=== PATIENT | male | born 1965 | race Caucasian/White ===

== ENCOUNTER 2019-05-23 10:15 | Day surgery (SDC) | payer BC ==
[2019-05-23] MEDS ORDERED: ALLO100T PO (15:57)
[2019-05-23] MEDS ORDERED: CLOP75TA35 PO (16:05)
[2019-05-23] MEDS ORDERED: TRIA1TAB5 PO (16:05)
[2019-05-23] MEDS ORDERED: GABA-532 PO (16:05)
[2019-05-23] MEDS ORDERED: ATOR40TA PO (16:05)
[2019-05-23] MEDS ORDERED: CARV6.253 PO (16:05)
[2019-05-23] MEDS ORDERED: BENA40TA8 PO (16:05)
[2019-05-23] MEDS ORDERED: ASPI81TA52 PO (16:05)
--- NOTE | 2019-05-23 16:05 | NUR ---
1030 Patient ambulated safely into [facility]. Patient admitted to outpatient wound care clinic for initial visit with physician. Dressing removed, wound cleansed. Patient assessed for conditions, medications and medical history. Patient showed no s/s of distress at time of assessment. 1145 at bedside accompanied by RN. Wounds assessed, time out performed and debridement done today as detailed in the physician progress/procedure note. Plan of care discussed with patient. Dressings placed per MD orders. Foot xray done as ordered. ELIAS and arterial ultrasound ordered for next weeks appointment. Patient instructed on the signs and symptoms of infection and to call the Wound Center if any occur or to go to the ED if we are closed: Increased pain in wound Increase in drainage from the wound Redness in the skin surrounding the wound Bleeding from the wound Temperature of 101 or greater Patient instructed that the weight of their body puts a large amount of pressure on their wounds. This pressure keeps the new tissue from growing and inhibits new blood vessels from forming. Explained that, if they continue to bear weight on a body part that has a wound, the time it takes to heal the wound increases, the wound may get worse or the wound may not heal at all. Patient verbalized understanding of all discharge instructions and plan of care. Patient ambulated independently out to [facility] and is in stable condition with no sign or symptom of distress at time of discharge.
== END 2019-05-23 12:39 | disposition home or self-care (01) ==
LOC: WOUND CARE 10:15
PROVIDERS: ATTEND Surgery
DX: E11.621 Type 2 diabetes mellitus with foot ulcer (principal); L97.522 Non-pressure chronic ulcer of other part of left foot with fat layer exposed; I12.9 Hypertensive chronic kidney disease with stage 1 through stage 4 chronic kidney disease, or unspecified chronic kidney disease; E11.22 Type 2 diabetes mellitus with diabetic chronic kidney disease; N18.3 Chronic kidney disease, stage 3 (moderate); E11.40 Type 2 diabetes mellitus with diabetic neuropathy, unspecified; G60.9 Hereditary and idiopathic neuropathy, unspecified; I25.10 Atherosclerotic heart disease of native coronary artery without angina pectoris; L84 Corns and callosities; M10.9 Gout, unspecified; I25.2 Old myocardial infarction; E78.5 Hyperlipidemia, unspecified; Z79.01 Long term (current) use of anticoagulants; Z79.02 Long term (current) use of antithrombotics/antiplatelets; Z79.82 Long term (current) use of aspirin; Z79.899 Other long term (current) drug therapy; Z95.5 Presence of coronary angioplasty implant and graft
CPT/HCPCS: 11042; 73620; 87070; 87075; 87077; 87102; 87176; 87186; A6209; G0463; L3260; A4663; A6446

== ENCOUNTER 2019-05-26 16:03 | Inpatient (IN) | payer BC ==
[~2019-05-26] VITALS: Ht 185.4 cm; Wt 93.0 kg
[~2019-05-26 16:03] MED LIST: ALLO100T PO; ASPI81TA52 PO; ATOR40TA PO; BENA40TA8 PO; CARV6.253 PO; CLOP75TA35 PO; GABA-532 PO; TRIA1TAB5 PO
[2019-05-26 17:08] LABS: BASOPHILS # (AUTO) 0.1 X10'3 (0-0.2); BASOPHILS % (AUTO) 0.5 % (0-1); EOSINOPHILS % (AUTO) 0.2 % (0-6); HEMATOCRIT 40.3 % (42.0-52.0); HEMOGLOBIN 13.6 g/dl (14.0-17.9); LYMPHOCYTES # (AUTO) 1.7 X10'3 (1.1-4.8); LYMPHOCYTES % (AUTO) 10.2 % (21-51); MEAN CORPUSCULAR HEMOGLOBIN 28.9 PG (27.0-31.0); MEAN CORPUSCULAR HGB CONC 33.7 g/dL (33.0-36.5); MEAN CORPUSCULAR VOLUME 85.8 FL (78-98); MEAN PLATELET VOLUME 8.2 FL (7.4-10.4); MONOCYTES # (AUTO) 1.1 X10'3 (0-0.9); MONOCYTES % (AUTO) 6.7 % (2-12); NEUTROPHILS # (AUTO) 13.9 X10'3 (1.8-7.7); NEUTROPHILS % (AUTO) 82.4 % (42-75); PLATELET COUNT 243 X10'3 (140-440); RED CELL DISTRIBUTION WIDTH 13.9 % (11.5-14.5); WHITE BLOOD COUNT 16.8 X10'3 (4.5-11.0)
[2019-05-26 17:23] LABS: ALANINE AMINOTRANSFERASE 27 U/L (12-78); ALBUMIN 3.5 G/DL (3.4-5.0); ALBUMIN/GLOBULIN RATIO 0.9 (1.1-1.5); ALKALINE PHOSPHATASE 96 IU/L (46-116); ANION GAP 9 (8-16); ASPARTATE AMINO TRANSFERASE 18 U/L (10-37); BILIRUBIN,TOTAL 0.9 MG/DL (0.1-1.0); BLOOD UREA NITROGEN 24 MG/DL (7-18); BUN/CREATININE RATIO 15.5 (5.4-32.0); CALCIUM 8.9 MG/DL (8.5-10.1); CHLORIDE 102 MMOL/L (99-107); CREATININE 1.55 MG/DL (0.60-1.10); GLUCOSE 121 MG/DL (70-104); POTASSIUM 3.7 MMOL/L (3.5-5.1); SODIUM 140 MMOL/L (135-145); TOTAL CARBON DIOXIDE 29.3 MMOL/L (24-32); TOTAL PROTEIN 7.2 G/DL (6.4-8.2); eGFR 47 ML/MIN
[2019-05-26] MEDS ORDERED: normal saline 1000ML IV soln IVB ONE (17:30)
[2019-05-26] MEDS ORDERED: levoFLOXACIN-Levaquin 500mg/D5 100 ML IV STA (17:31)
[2019-05-26] MEDS ORDERED: iohexol 300mg/ml 100ml inj. ONE (17:43)
--- NOTE | 2019-05-26 17:58 | NUR ---
CLEANSED LEFT FOOT WOUND WITH N/S, COVERED WITH GAUZE, KERLIX AND MELISSA. NOTED FOUL ODOR, REDNESS ON BOTTOM AND TOP OF FOOT WARMTH AND SWELLING.
--- NOTE | 2019-05-26 21:00 | NUR ---
PROVIDED PATIENT WITH SAEED, APPLE SAUCE AND APPLE JUICE AND WATER
[2019-05-26 22:15] VITALS: BP 108/65
--- NOTE | 2019-05-26 22:15 | NUR ---
Patient in room ORTHO 4016. I have received "report" from TRIPP Valero in ED and had the opportunity to ask questions and assume patient care. Patient ambulated from gurney to bed without difficulty. 20G in right AC with 20 mL/hr NS TKO. Patient is A&O x4 and is very pleasant individual. Will continue to monitor closely.
[2019-05-26] MEDS ORDERED: magnesium 2GM in 50ml NS 50 ML IV PRN (22:55)
[2019-05-26] MEDS ORDERED: magnesium Cl slow-release 64mg tablet PO PRN (22:55)
[2019-05-26] MEDS ORDERED: ondansetron/PF 4mg/2ml inj IV PRN (22:55)
[2019-05-26] MEDS ORDERED: acetaminophen 325mg tablet PO PRN (22:55)
[2019-05-26] MEDS ORDERED: potassium Cl 20 mEq SR tablet PO PRN (22:55)
[2019-05-26] MEDS ORDERED: magnesium 4gm in 100ml NS 100 ML IV PRN (22:55)
[2019-05-26] MEDS ORDERED: potassium CL 10mEq/100ml bag 100 ML IV PRN ×2 (22:55)
[2019-05-26] MEDS ORDERED: morphine 2 MG/ML inj. syringe IV PRN (22:55)
[2019-05-26] MEDS ORDERED: HYDROcodone/acetaminophen 5mg/325mg tablet PO PRN (22:55)
[2019-05-26] MEDS: normal saline 1000ml 1,000 ML IV SCH (23:32)
[2019-05-27 05:16] LABS: BASOPHILS % (AUTO) 0.2 % (0-1); EOSINOPHILS # (AUTO) 0.1 X10'3 (0-0.9); EOSINOPHILS % (AUTO) 0.5 % (0-6); HEMATOCRIT 42.8 % (42.0-52.0); HEMOGLOBIN 14.3 g/dl (14.0-17.9); LYMPHOCYTES # (AUTO) 2.2 X10'3 (1.1-4.8); LYMPHOCYTES % (AUTO) 16.5 % (21-51); MEAN CORPUSCULAR HEMOGLOBIN 29.3 PG (27.0-31.0); MEAN CORPUSCULAR HGB CONC 33.4 g/dL (33.0-36.5); MEAN CORPUSCULAR VOLUME 87.8 FL (78-98); MEAN PLATELET VOLUME 8.3 FL (7.4-10.4); MONOCYTES % (AUTO) 7.5 % (2-12); NEUTROPHILS # (AUTO) 10.1 X10'3 (1.8-7.7); NEUTROPHILS % (AUTO) 75.3 % (42-75); PLATELET COUNT 239 X10'3 (140-440); RED BLOOD COUNT 4.87 X10'6 (4.70-6.10); RED CELL DISTRIBUTION WIDTH 13.9 % (11.5-14.5); WHITE BLOOD COUNT 13.4 X10'3 (4.5-11.0)
[2019-05-27 05:31] LABS: ALBUMIN 3.5 G/DL (3.4-5.0); ANION GAP 12 (8-16); BLOOD UREA NITROGEN 17 MG/DL (7-18); BUN/CREATININE RATIO 13.1 (5.4-32.0); CALCIUM 9.3 MG/DL (8.5-10.1); CHLORIDE 104 MMOL/L (99-107); GLUCOSE 99 MG/DL (70-104); MAGNESIUM 1.8 MG/DL (1.5-2.4); POTASSIUM 3.4 MMOL/L (3.5-5.1); SODIUM 143 MMOL/L (135-145); TOTAL CARBON DIOXIDE 27.4 MMOL/L (24-32); eGFR 57 ML/MIN
--- NOTE | 2019-05-27 06:20 | NUR ---
Problems reprioritized. Patient report given, questions answered & plan of care reviewed with TRIPP Stiles.
--- NOTE | 2019-05-27 06:20 | NUR ---
Patient in room ORTHO 4016. I have received report from Odalys and had the opportunity to ask questions and assume patient care.
[2019-05-27 06:30] VITALS: BP 103/59
[2019-05-27] MEDS: potassium Cl 20 mEq SR tablet PO PRN ×2 (07:08→16:41)
[2019-05-27] MEDS: piperacillin/tazo 3.375gm/50ml 50 ML IV SCH ×3 (07:08→23:54)
[2019-05-27] MEDS: atorvastatin 20mg tablet PO SCH (07:09)
[2019-05-27] MEDS: carvedilol 6.25mg tablet PO SCH ×2 (07:09→20:00)
[2019-05-27] MEDS: docusate sod 100mg capsule PO SCH ×2 (07:09→20:00)
[2019-05-27] MEDS: lisinopril 20mg tablet PO SCH (07:11)
[2019-05-27] MEDS: gabapentin 300mg capsule PO SCH ×2 (07:11→20:06)
[2019-05-27] MEDS: clopidogrel 75mg tablet PO SCH (07:11)
[2019-05-27] MEDS: allopurinol 300 MG tablet PO SCH (07:12)
[2019-05-27] MEDS: aspirin 81mg tablet.DR PO SCH (07:12)
[2019-05-27] MEDS: K and/or MAG REPLACEMENT MC SCH (07:13)
[2019-05-27 10:00] VITALS: BP 99/59
[2019-05-27 18:00] VITALS: BP 92/53
--- NOTE | 2019-05-27 18:16 | NUR ---
Problems reprioritized. Patient report given, questions answered & plan of care reviewed with THUY.
[2019-05-27 20:01] VITALS: BP 83/52
[2019-05-27] MEDS: lactobacillus rhamnosus 10,000 MMU CELLS/CAPSULE PO SCH (20:06)
[2019-05-27] MEDS: famotidine 20mg tablet PO SCH (20:06)
[2019-05-27 22:00] VITALS: BP 100/57
[2019-05-28 06:00] VITALS: BP 104/67
--- NOTE | 2019-05-28 06:29 | NUR ---
Report given to Bacilio ALMAGUER.
--- NOTE | 2019-05-28 06:41 | NUR ---
Patient in room ORTHO 4016. I have received report from Jamila Humphrey RN and had the opportunity to ask questions and assume patient care.
[2019-05-28 07:07] LABS: BASOPHILS # (AUTO) 0.1 X10'3 (0-0.2); BASOPHILS % (AUTO) 0.7 % (0-1); EOSINOPHILS # (AUTO) 0.1 X10'3 (0-0.9); HEMATOCRIT 38.1 % (42.0-52.0); LYMPHOCYTES # (AUTO) 1.2 X10'3 (1.1-4.8); LYMPHOCYTES % (AUTO) 13.3 % (21-51); MEAN CORPUSCULAR HEMOGLOBIN 29.6 PG (27.0-31.0); MEAN CORPUSCULAR HGB CONC 34.2 g/dL (33.0-36.5); MEAN CORPUSCULAR VOLUME 86.5 FL (78-98); MEAN PLATELET VOLUME 8.1 FL (7.4-10.4); MONOCYTES # (AUTO) 0.5 X10'3 (0-0.9); NEUTROPHILS # (AUTO) 6.9 X10'3 (1.8-7.7); PLATELET COUNT 245 X10'3 (140-440); RED BLOOD COUNT 4.41 X10'6 (4.70-6.10); RED CELL DISTRIBUTION WIDTH 14.2 % (11.5-14.5); WHITE BLOOD COUNT 8.8 X10'3 (4.5-11.0)
[2019-05-28 07:16] LABS: ANION GAP 9 (8-16); BLOOD UREA NITROGEN 21 MG/DL (7-18); BUN/CREATININE RATIO 13.2 (5.4-32.0); CALCIUM 8.9 MG/DL (8.5-10.1); CHLORIDE 105 MMOL/L (99-107); CREATININE 1.59 MG/DL (0.60-1.10); GLUCOSE 128 MG/DL (70-104); MAGNESIUM 1.7 MG/DL (1.5-2.4); SODIUM 144 MMOL/L (135-145); TOTAL CARBON DIOXIDE 30.3 MMOL/L (24-32); eGFR 45 ML/MIN
[2019-05-28 07:18] LABS: POTASSIUM 3.5 MMOL/L (3.5-5.1)
[2019-05-28] MEDS: K and/or MAG REPLACEMENT MC SCH (07:36)
[2019-05-28] MEDS: docusate sod 100mg capsule PO SCH ×2 (07:41→20:00)
[2019-05-28] MEDS: piperacillin/tazo 3.375gm/50ml 50 ML IV SCH ×3 (07:41→23:49)
[2019-05-28] MEDS: lactobacillus rhamnosus 10,000 MMU CELLS/CAPSULE PO SCH ×2 (07:42→20:07)
[2019-05-28] MEDS: aspirin 81mg tablet.DR PO SCH (07:42)
[2019-05-28] MEDS: clopidogrel 75mg tablet PO SCH (07:43)
[2019-05-28] MEDS: gabapentin 300mg capsule PO SCH ×2 (07:43→20:07)
[2019-05-28] MEDS: atorvastatin 20mg tablet PO SCH (07:43)
[2019-05-28] MEDS: allopurinol 300 MG tablet PO SCH (07:44)
[2019-05-28] MEDS: lisinopril 20mg tablet PO SCH (07:44)
[2019-05-28] MEDS: carvedilol 6.25mg tablet PO SCH ×2 (07:45→20:00)
[2019-05-28 10:00] VITALS: BP 104/64
[2019-05-28 14:00] VITALS: BP 98/62
--- NOTE | 2019-05-28 14:27 | NUR ---
WOUND INFECTION EDUCATION PROVIDED BY WOUND CARE 1. Patient instructed to call their primary doctor, or go the ED immediately if any of the following symptoms occur: * Increased pain in wound * Increase in drainage from the wound * Redness in the skin surrounding the wound * Warmth in the skin surrounding the wound * Bleeding from the wound * Temperature of 101 or greater 2. If any of these occur while in the hospital tell a nurse immediately. Addendum: 05/28/19 at 1428 by Zach Godfrey RN Amended: Links added.
[2019-05-28 18:00] VITALS: BP 99/62
--- NOTE | 2019-05-28 18:05 | NUR ---
Received report from Bacilio ALMAGUER, assumed care of patient.
--- NOTE | 2019-05-28 18:07 | NUR ---
Problems reprioritized. Patient report given, questions answered & plan of care reviewed with Jamila Humphrey RN.
[2019-05-28 20:02] VITALS: BP 102/66
[2019-05-28] MEDS: famotidine 20mg tablet PO SCH (20:07)
[2019-05-28 22:00] VITALS: BP 114/57
[2019-05-28] MEDS: normal saline 1000ml 1,000 ML IV SCH (23:49)
[2019-05-29 06:00] VITALS: BP 111/68
[2019-05-29 06:08] LABS: ALBUMIN 3.1 G/DL (3.4-5.0); ANION GAP 8 (8-16); BLOOD UREA NITROGEN 19 MG/DL (7-18); BUN/CREATININE RATIO 12.4 (5.4-32.0); CALCIUM 9.2 MG/DL (8.5-10.1); CHLORIDE 107 MMOL/L (99-107); CREATININE 1.53 MG/DL (0.60-1.10); GLUCOSE 108 MG/DL (70-104); MAGNESIUM 1.8 MG/DL (1.5-2.4); POTASSIUM 3.8 MMOL/L (3.5-5.1); SODIUM 146 MMOL/L (135-145); TOTAL CARBON DIOXIDE 30.9 MMOL/L (24-32); eGFR 47 ML/MIN
--- NOTE | 2019-05-29 06:10 | NUR ---
Patient in room ORTHO 4016. I have received report from Jamila Becker and had the opportunity to ask questions and assume patient care.
[2019-05-29 06:11] LABS: BASOPHILS % (AUTO) 0.4 % (0-1); EOSINOPHILS # (AUTO) 0.1 X10'3 (0-0.9); EOSINOPHILS % (AUTO) 1.2 % (0-6); HEMATOCRIT 40.4 % (42.0-52.0); HEMOGLOBIN 13.7 g/dl (14.0-17.9); LYMPHOCYTES # (AUTO) 1.5 X10'3 (1.1-4.8); LYMPHOCYTES % (AUTO) 18.7 % (21-51); MEAN CORPUSCULAR HEMOGLOBIN 29.2 PG (27.0-31.0); MEAN CORPUSCULAR HGB CONC 33.8 g/dL (33.0-36.5); MEAN CORPUSCULAR VOLUME 86.4 FL (78-98); MEAN PLATELET VOLUME 7.8 FL (7.4-10.4); MONOCYTES # (AUTO) 0.5 X10'3 (0-0.9); MONOCYTES % (AUTO) 5.9 % (2-12); NEUTROPHILS # (AUTO) 5.8 X10'3 (1.8-7.7); NEUTROPHILS % (AUTO) 73.8 % (42-75); PLATELET COUNT 247 X10'3 (140-440); RED BLOOD COUNT 4.68 X10'6 (4.70-6.10); RED CELL DISTRIBUTION WIDTH 13.7 % (11.5-14.5); WHITE BLOOD COUNT 7.8 X10'3 (4.5-11.0)
--- NOTE | 2019-05-29 06:11 | NUR ---
Report given to Ashley ALMAGUER.
[2019-05-29] MEDS: allopurinol 300 MG tablet PO SCH (08:00)
[2019-05-29] MEDS: K and/or MAG REPLACEMENT MC SCH (08:00)
[2019-05-29] MEDS: lisinopril 20mg tablet PO SCH (08:00)
[2019-05-29] MEDS: docusate sod 100mg capsule PO SCH (08:00)
[2019-05-29] MEDS: piperacillin/tazo 3.375gm/50ml 50 ML IV SCH (08:43)
[2019-05-29] MEDS: aspirin 81mg tablet.DR PO SCH (08:48)
[2019-05-29] MEDS: clopidogrel 75mg tablet PO SCH (08:48)
[2019-05-29] MEDS: gabapentin 300mg capsule PO SCH (08:48)
[2019-05-29] MEDS: atorvastatin 20mg tablet PO SCH (08:48)
[2019-05-29] MEDS: lactobacillus rhamnosus 10,000 MMU CELLS/CAPSULE PO SCH (08:48)
[2019-05-29] MEDS: carvedilol 6.25mg tablet PO SCH (08:48)
[2019-05-29 10:32] VITALS: BP 111/67
[2019-05-29] MEDS ORDERED: SULF1TAB49 PO (10:49)
[2019-05-29] MEDS ORDERED: CEPH250T PO (10:49)
--- NOTE | 2019-05-29 12:44 | NUR ---
Reviewed discharge instructions with pt. Pt verbalized understanding. Reviewed wound care discharge instruction with pt and spouse. Pt is alert and oriented, no c/o pain or discomfort at this time. Pt was wheeled downstairs to be driven home by his spouse. Pt will call wound care clinic to make a follow up appt in 3 days.
== END 2019-05-29 13:00 | disposition home or self-care (01) | DRG 603 ==
LOC: ER 16:03 → ORTHO 4S 23:34
PROVIDERS: ADMIT Internal Medicine; ATTEND Internal Medicine
DX: L03.116 Cellulitis of left lower limb (principal); N17.9 Acute kidney failure, unspecified; L02.612 Cutaneous abscess of left foot; E11.22 Type 2 diabetes mellitus with diabetic chronic kidney disease; E11.40 Type 2 diabetes mellitus with diabetic neuropathy, unspecified; E11.621 Type 2 diabetes mellitus with foot ulcer; E78.5 Hyperlipidemia, unspecified; I12.9 Hypertensive chronic kidney disease with stage 1 through stage 4 chronic kidney disease, or unspecified chronic kidney disease; I25.10 Atherosclerotic heart disease of native coronary artery without angina pectoris; L84 Corns and callosities; L97.521 Non-pressure chronic ulcer of other part of left foot limited to breakdown of skin; E87.6 Hypokalemia; M62.542 Muscle wasting and atrophy, not elsewhere classified, left hand; N18.3 Chronic kidney disease, stage 3 (moderate); M10.9 Gout, unspecified; Z79.82 Long term (current) use of aspirin; Z79.899 Other long term (current) drug therapy; I25.2 Old myocardial infarction; Z79.02 Long term (current) use of antithrombotics/antiplatelets; Z79.01 Long term (current) use of anticoagulants; Z95.5 Presence of coronary angioplasty implant and graft
CPT/HCPCS: 36415; 73701; 73718; 80048; 80053; 83605; 83735; 84145; 85025; 85651; 86140; 87040; 87081; 96365; 99285; G0378; J1956; J2543; J7030; Q9967

== ENCOUNTER 2019-06-03 08:41 | Day surgery (SDC) | payer BC ==
[~2019-06-03 08:41] MED LIST changes: +CEPH250T PO; +SULF1TAB49 PO
[2019-06-03] MEDS ORDERED: LIDOcaine/PRILOcaine 5gm cream TP ONE (09:53)
== END 2019-06-03 10:40 | disposition home or self-care (01) ==
LOC: WOUND CARE 08:41
PROVIDERS: ATTEND Surgery
DX: E11.621 Type 2 diabetes mellitus with foot ulcer (principal); L89.893 Pressure ulcer of other site, stage 3; L97.522 Non-pressure chronic ulcer of other part of left foot with fat layer exposed; I12.9 Hypertensive chronic kidney disease with stage 1 through stage 4 chronic kidney disease, or unspecified chronic kidney disease; E11.22 Type 2 diabetes mellitus with diabetic chronic kidney disease; N18.3 Chronic kidney disease, stage 3 (moderate); E11.40 Type 2 diabetes mellitus with diabetic neuropathy, unspecified; G60.9 Hereditary and idiopathic neuropathy, unspecified; I25.10 Atherosclerotic heart disease of native coronary artery without angina pectoris; L84 Corns and callosities; M10.9 Gout, unspecified; I25.2 Old myocardial infarction; E78.5 Hyperlipidemia, unspecified; Z79.01 Long term (current) use of anticoagulants; Z79.02 Long term (current) use of antithrombotics/antiplatelets; Z79.82 Long term (current) use of aspirin; Z79.899 Other long term (current) drug therapy; Z95.5 Presence of coronary angioplasty implant and graft
CPT/HCPCS: 11042; A6266; A4663; A6446

== ENCOUNTER 2019-06-06 08:30 | Day surgery (SDC) | payer BC ==
[2019-06-06] MEDS ORDERED: LIDOcaine/PRILOcaine 5gm cream TP ONE (09:22)
== END 2019-06-06 11:02 | disposition home or self-care (01) ==
LOC: WOUND CARE 08:30
PROVIDERS: ATTEND Surgery
DX: E11.621 Type 2 diabetes mellitus with foot ulcer (principal); L89.893 Pressure ulcer of other site, stage 3; L97.522 Non-pressure chronic ulcer of other part of left foot with fat layer exposed; I12.9 Hypertensive chronic kidney disease with stage 1 through stage 4 chronic kidney disease, or unspecified chronic kidney disease; E11.22 Type 2 diabetes mellitus with diabetic chronic kidney disease; N18.3 Chronic kidney disease, stage 3 (moderate); E11.40 Type 2 diabetes mellitus with diabetic neuropathy, unspecified; G60.9 Hereditary and idiopathic neuropathy, unspecified; I25.10 Atherosclerotic heart disease of native coronary artery without angina pectoris; L84 Corns and callosities; M10.9 Gout, unspecified; I25.2 Old myocardial infarction; E78.5 Hyperlipidemia, unspecified; Z79.01 Long term (current) use of anticoagulants; Z79.02 Long term (current) use of antithrombotics/antiplatelets; Z79.82 Long term (current) use of aspirin; Z79.899 Other long term (current) drug therapy; Z95.5 Presence of coronary angioplasty implant and graft
CPT/HCPCS: 29445; A4663; A6021; A6154; Q4038

== ENCOUNTER 2019-06-09 15:27 | Emergency (ER) | payer BC ==
[~2019-06-09] VITALS: Ht 185.4 cm; Wt 102.0 kg
[2019-06-09 16:23] LABS: BASOPHILS # (AUTO) 0.1 X10'3 (0-0.2); BASOPHILS % (AUTO) 0.5 % (0-1); EOSINOPHILS # (AUTO) 0.1 X10'3 (0-0.9); EOSINOPHILS % (AUTO) 0.9 % (0-6); HEMOGLOBIN 14.5 g/dl (14.0-17.9); LYMPHOCYTES # (AUTO) 1.9 X10'3 (1.1-4.8); LYMPHOCYTES % (AUTO) 17.7 % (21-51); MEAN CORPUSCULAR HEMOGLOBIN 28.8 PG (27.0-31.0); MEAN CORPUSCULAR HGB CONC 33.7 g/dL (33.0-36.5); MEAN CORPUSCULAR VOLUME 85.5 FL (78-98); MEAN PLATELET VOLUME 7.6 FL (7.4-10.4); MONOCYTES # (AUTO) 0.5 X10'3 (0-0.9); MONOCYTES % (AUTO) 4.4 % (2-12); NEUTROPHILS # (AUTO) 8.2 X10'3 (1.8-7.7); NEUTROPHILS % (AUTO) 76.5 % (42-75); PLATELET COUNT 316 X10'3 (140-440); RED BLOOD COUNT 5.03 X10'6 (4.70-6.10); WHITE BLOOD COUNT 10.7 X10'3 (4.5-11.0)
[2019-06-09 16:40] LABS: ALANINE AMINOTRANSFERASE 32 U/L (12-78); ALBUMIN 3.7 G/DL (3.4-5.0); ALBUMIN/GLOBULIN RATIO 1.1 (1.1-1.5); ALKALINE PHOSPHATASE 103 IU/L (46-116); ANION GAP 9 (8-16); ASPARTATE AMINO TRANSFERASE 18 U/L (10-37); BILIRUBIN,TOTAL 0.5 MG/DL (0.1-1.0); BLOOD UREA NITROGEN 20 MG/DL (7-18); BUN/CREATININE RATIO 13.2 (5.4-32.0); CALCIUM 8.9 MG/DL (8.5-10.1); CHLORIDE 105 MMOL/L (99-107); CREATININE 1.52 MG/DL (0.60-1.10); GLUCOSE 107 MG/DL (70-104); PARTIAL THROMBOPLASTIN TIME 33 SECONDS (22-32); POTASSIUM 3.7 MMOL/L (3.5-5.1); SODIUM 141 MMOL/L (135-145); TOTAL CARBON DIOXIDE 26.6 MMOL/L (24-32); TOTAL PROTEIN 7.2 G/DL (6.4-8.2); eGFR 48 ML/MIN
[2019-06-09 16:56] VITALS: BP 115/70
== END 2019-06-09 16:59 | disposition home or self-care (01) ==
LOC: ER 15:27
DX: R07.89 Other chest pain (principal); G62.9 Polyneuropathy, unspecified; Z79.82 Long term (current) use of aspirin; Z79.899 Other long term (current) drug therapy
CPT/HCPCS: 36415; 71045; 80053; 84484; 85025; 85610; 85730; 93005; 99284

== ENCOUNTER 2019-06-10 08:30 | Day surgery (SDC) | payer BC ==
[2019-06-10] MEDS ORDERED: LIDOcaine 2% 5ml jelly ONE (09:03)
== END 2019-06-10 11:05 | disposition home or self-care (01) ==
LOC: WOUND CARE 08:30
PROVIDERS: ATTEND Surgery
DX: E11.621 Type 2 diabetes mellitus with foot ulcer (principal); L89.893 Pressure ulcer of other site, stage 3; L97.522 Non-pressure chronic ulcer of other part of left foot with fat layer exposed; I12.9 Hypertensive chronic kidney disease with stage 1 through stage 4 chronic kidney disease, or unspecified chronic kidney disease; E11.22 Type 2 diabetes mellitus with diabetic chronic kidney disease; N18.3 Chronic kidney disease, stage 3 (moderate); E11.40 Type 2 diabetes mellitus with diabetic neuropathy, unspecified; G60.9 Hereditary and idiopathic neuropathy, unspecified; I25.10 Atherosclerotic heart disease of native coronary artery without angina pectoris; L84 Corns and callosities; M10.9 Gout, unspecified; I25.2 Old myocardial infarction; E78.5 Hyperlipidemia, unspecified; Z79.01 Long term (current) use of anticoagulants; Z79.02 Long term (current) use of antithrombotics/antiplatelets; Z79.82 Long term (current) use of aspirin; Z79.899 Other long term (current) drug therapy; Z95.5 Presence of coronary angioplasty implant and graft
CPT/HCPCS: 29445; A4663; A6021; A6154; Q4038

== ENCOUNTER 2019-06-17 08:25 | Day surgery (SDC) | payer BC ==
[2019-06-17] MEDS ORDERED: LIDOcaine 2% 5ml jelly ONE (10:06)
== END 2019-06-17 12:00 | disposition home or self-care (01) ==
LOC: WOUND CARE 08:25
PROVIDERS: ATTEND Surgery
DX: E11.621 Type 2 diabetes mellitus with foot ulcer (principal); L89.893 Pressure ulcer of other site, stage 3; L97.522 Non-pressure chronic ulcer of other part of left foot with fat layer exposed; I12.9 Hypertensive chronic kidney disease with stage 1 through stage 4 chronic kidney disease, or unspecified chronic kidney disease; E11.22 Type 2 diabetes mellitus with diabetic chronic kidney disease; N18.3 Chronic kidney disease, stage 3 (moderate); E11.40 Type 2 diabetes mellitus with diabetic neuropathy, unspecified; G60.9 Hereditary and idiopathic neuropathy, unspecified; I25.10 Atherosclerotic heart disease of native coronary artery without angina pectoris; L84 Corns and callosities; M10.9 Gout, unspecified; I25.2 Old myocardial infarction; E78.5 Hyperlipidemia, unspecified; Z79.01 Long term (current) use of anticoagulants; Z79.02 Long term (current) use of antithrombotics/antiplatelets; Z79.82 Long term (current) use of aspirin; Z79.899 Other long term (current) drug therapy; Z95.5 Presence of coronary angioplasty implant and graft
CPT/HCPCS: 29445; A4663; A6021; A6154; Q4038

== ENCOUNTER 2019-06-25 08:20 | Day surgery (SDC) | payer BC ==
[2019-06-25] MEDS ORDERED: LIDOcaine 2% 5ml jelly ONE (09:21)
== END 2019-06-25 11:25 | disposition home or self-care (01) ==
LOC: WOUND CARE 08:20
PROVIDERS: ATTEND Surgery
DX: E11.621 Type 2 diabetes mellitus with foot ulcer (principal); L89.893 Pressure ulcer of other site, stage 3; L97.526 Non-pressure chronic ulcer of other part of left foot with bone involvement without evidence of necrosis; I12.9 Hypertensive chronic kidney disease with stage 1 through stage 4 chronic kidney disease, or unspecified chronic kidney disease; E11.22 Type 2 diabetes mellitus with diabetic chronic kidney disease; N18.3 Chronic kidney disease, stage 3 (moderate); E11.40 Type 2 diabetes mellitus with diabetic neuropathy, unspecified; G60.9 Hereditary and idiopathic neuropathy, unspecified; I25.10 Atherosclerotic heart disease of native coronary artery without angina pectoris; L84 Corns and callosities; M10.9 Gout, unspecified; I25.2 Old myocardial infarction; E78.5 Hyperlipidemia, unspecified; Z79.01 Long term (current) use of anticoagulants; Z79.02 Long term (current) use of antithrombotics/antiplatelets; Z79.82 Long term (current) use of aspirin; Z79.899 Other long term (current) drug therapy; Z95.5 Presence of coronary angioplasty implant and graft
CPT/HCPCS: 29445; A4663; A6021; A6154; Q4038

== ENCOUNTER 2019-07-01 08:20 | Day surgery (SDC) | payer BC ==
[2019-07-01] MEDS ORDERED: LIDOcaine 2% 5ml jelly ONE (08:55)
== END 2019-07-01 10:44 | disposition home or self-care (01) ==
LOC: WOUND CARE 08:20
PROVIDERS: ATTEND Surgery
DX: E11.621 Type 2 diabetes mellitus with foot ulcer (principal); L89.893 Pressure ulcer of other site, stage 3; L97.526 Non-pressure chronic ulcer of other part of left foot with bone involvement without evidence of necrosis; I12.9 Hypertensive chronic kidney disease with stage 1 through stage 4 chronic kidney disease, or unspecified chronic kidney disease; E11.22 Type 2 diabetes mellitus with diabetic chronic kidney disease; N18.3 Chronic kidney disease, stage 3 (moderate); E11.40 Type 2 diabetes mellitus with diabetic neuropathy, unspecified; G60.9 Hereditary and idiopathic neuropathy, unspecified; I25.10 Atherosclerotic heart disease of native coronary artery without angina pectoris; L84 Corns and callosities; M10.9 Gout, unspecified; I25.2 Old myocardial infarction; E78.5 Hyperlipidemia, unspecified; Z79.01 Long term (current) use of anticoagulants; Z79.02 Long term (current) use of antithrombotics/antiplatelets; Z79.82 Long term (current) use of aspirin; Z79.899 Other long term (current) drug therapy; Z95.5 Presence of coronary angioplasty implant and graft
CPT/HCPCS: A4663; A6021; A6154

== ENCOUNTER 2019-07-09 08:10 | Day surgery (SDC) | payer BC ==
[~2019-07-09 08:10] MED LIST changes: -SULF1TAB49 PO
[2019-07-09] MEDS ORDERED: LIDOcaine/PRILOcaine 5gm cream TP ONE (09:13)
== END 2019-07-09 11:00 | disposition home or self-care (01) ==
LOC: WOUND CARE 08:10
PROVIDERS: ATTEND Surgery
DX: E11.621 Type 2 diabetes mellitus with foot ulcer (principal); L89.893 Pressure ulcer of other site, stage 3; L97.524 Non-pressure chronic ulcer of other part of left foot with necrosis of bone; I12.9 Hypertensive chronic kidney disease with stage 1 through stage 4 chronic kidney disease, or unspecified chronic kidney disease; E11.22 Type 2 diabetes mellitus with diabetic chronic kidney disease; N18.3 Chronic kidney disease, stage 3 (moderate); E11.40 Type 2 diabetes mellitus with diabetic neuropathy, unspecified; G60.9 Hereditary and idiopathic neuropathy, unspecified; I25.10 Atherosclerotic heart disease of native coronary artery without angina pectoris; L84 Corns and callosities; M10.9 Gout, unspecified; I25.2 Old myocardial infarction; E78.5 Hyperlipidemia, unspecified; Z79.01 Long term (current) use of anticoagulants; Z79.02 Long term (current) use of antithrombotics/antiplatelets; Z79.82 Long term (current) use of aspirin; Z79.899 Other long term (current) drug therapy; Z95.5 Presence of coronary angioplasty implant and graft
CPT/HCPCS: 11042; A6209; A4663; A6021; A6154

== ENCOUNTER 2019-07-15 08:31 | Day surgery (SDC) | payer BC ==
[2019-07-15] MEDS ORDERED: LIDOcaine/PRILOcaine 5gm cream TP ONE (08:57)
== END 2019-07-15 10:42 | disposition home or self-care (01) ==
LOC: WOUND CARE 08:31
PROVIDERS: ATTEND Surgery
DX: E11.621 Type 2 diabetes mellitus with foot ulcer (principal); L89.893 Pressure ulcer of other site, stage 3; L97.524 Non-pressure chronic ulcer of other part of left foot with necrosis of bone; I12.9 Hypertensive chronic kidney disease with stage 1 through stage 4 chronic kidney disease, or unspecified chronic kidney disease; E11.22 Type 2 diabetes mellitus with diabetic chronic kidney disease; N18.3 Chronic kidney disease, stage 3 (moderate); E11.40 Type 2 diabetes mellitus with diabetic neuropathy, unspecified; G60.9 Hereditary and idiopathic neuropathy, unspecified; I25.10 Atherosclerotic heart disease of native coronary artery without angina pectoris; L84 Corns and callosities; M10.9 Gout, unspecified; I25.2 Old myocardial infarction; E78.5 Hyperlipidemia, unspecified; Z79.01 Long term (current) use of anticoagulants; Z79.02 Long term (current) use of antithrombotics/antiplatelets; Z79.82 Long term (current) use of aspirin; Z79.899 Other long term (current) drug therapy; Z95.5 Presence of coronary angioplasty implant and graft
CPT/HCPCS: 11042; A6209; A4663; A6021; A6154; Q4038

== ENCOUNTER 2019-07-22 08:30 | Outpatient (CLI) | payer BC | END 2019-07-22 09:30 | disposition home or self-care (01) | LOC: WOUND CARE 08:30 → EDSTATUS 08:30 → WOUND CARE 09:30 | PROVIDERS: ATTEND Surgery | DX: E11.621 Type 2 diabetes mellitus with foot ulcer (principal); L89.893 Pressure ulcer of other site, stage 3; L97.524 Non-pressure chronic ulcer of other part of left foot with necrosis of bone; I12.9 Hypertensive chronic kidney disease with stage 1 through stage 4 chronic kidney disease, or unspecified chronic kidney disease; E11.22 Type 2 diabetes mellitus with diabetic chronic kidney disease; N18.3 Chronic kidney disease, stage 3 (moderate); E11.40 Type 2 diabetes mellitus with diabetic neuropathy, unspecified; G60.9 Hereditary and idiopathic neuropathy, unspecified; I25.10 Atherosclerotic heart disease of native coronary artery without angina pectoris; L84 Corns and callosities; M81.0 Age-related osteoporosis without current pathological fracture; I25.2 Old myocardial infarction; E78.5 Hyperlipidemia, unspecified; Z79.01 Long term (current) use of anticoagulants; Z79.02 Long term (current) use of antithrombotics/antiplatelets; Z79.82 Long term (current) use of aspirin; Z79.899 Other long term (current) drug therapy; Z95.5 Presence of coronary angioplasty implant and graft | CPT/HCPCS: 29445; A6209; A6222; A4663; A6021; Q4038 ==

== ENCOUNTER 2019-07-29 08:30 | Day surgery (SDC) | payer BC ==
[2019-07-29] MEDS ORDERED: LIDOcaine/PRILOcaine 5gm cream TP ONE (09:12)
== END 2019-07-29 10:55 | disposition home or self-care (01) ==
LOC: WOUND CARE 08:30
PROVIDERS: ATTEND Surgery
DX: E11.621 Type 2 diabetes mellitus with foot ulcer (principal); L89.893 Pressure ulcer of other site, stage 3; L97.524 Non-pressure chronic ulcer of other part of left foot with necrosis of bone; I12.9 Hypertensive chronic kidney disease with stage 1 through stage 4 chronic kidney disease, or unspecified chronic kidney disease; E11.22 Type 2 diabetes mellitus with diabetic chronic kidney disease; N18.3 Chronic kidney disease, stage 3 (moderate); E11.40 Type 2 diabetes mellitus with diabetic neuropathy, unspecified; G60.9 Hereditary and idiopathic neuropathy, unspecified; I25.10 Atherosclerotic heart disease of native coronary artery without angina pectoris; L84 Corns and callosities; M81.0 Age-related osteoporosis without current pathological fracture; I25.2 Old myocardial infarction; E78.5 Hyperlipidemia, unspecified; Z79.01 Long term (current) use of anticoagulants; Z79.02 Long term (current) use of antithrombotics/antiplatelets; Z79.82 Long term (current) use of aspirin; Z79.899 Other long term (current) drug therapy; Z95.5 Presence of coronary angioplasty implant and graft
CPT/HCPCS: 11042; A6209; A4663; A6021; A6154; Q4038

== ENCOUNTER 2019-08-05 08:20 | Day surgery (SDC) | payer BC ==
[2019-08-05] MEDS ORDERED: LIDOcaine 2% 5ml jelly ONE (09:07)
== END 2019-08-05 10:53 | disposition home or self-care (01) ==
LOC: WOUND CARE 08:20
PROVIDERS: ATTEND Surgery
DX: E11.621 Type 2 diabetes mellitus with foot ulcer (principal); I83.025 Varicose veins of left lower extremity with ulcer other part of foot; L89.893 Pressure ulcer of other site, stage 3; L97.524 Non-pressure chronic ulcer of other part of left foot with necrosis of bone; I12.9 Hypertensive chronic kidney disease with stage 1 through stage 4 chronic kidney disease, or unspecified chronic kidney disease; E11.22 Type 2 diabetes mellitus with diabetic chronic kidney disease; N18.3 Chronic kidney disease, stage 3 (moderate); E11.40 Type 2 diabetes mellitus with diabetic neuropathy, unspecified; G60.9 Hereditary and idiopathic neuropathy, unspecified; I25.10 Atherosclerotic heart disease of native coronary artery without angina pectoris; L84 Corns and callosities; M81.0 Age-related osteoporosis without current pathological fracture; I25.2 Old myocardial infarction; E78.5 Hyperlipidemia, unspecified; Z79.01 Long term (current) use of anticoagulants; Z79.02 Long term (current) use of antithrombotics/antiplatelets; Z79.82 Long term (current) use of aspirin; Z79.899 Other long term (current) drug therapy; Z95.5 Presence of coronary angioplasty implant and graft
CPT/HCPCS: A4663; A6021; Q4038

== ENCOUNTER 2019-08-12 08:20 | Day surgery (SDC) | payer BC ==
[2019-08-12] MEDS ORDERED: LIDOcaine/PRILOcaine 5gm cream TP ONE (09:07)
== END 2019-08-12 10:47 | disposition home or self-care (01) ==
LOC: WOUND CARE 08:20
PROVIDERS: ATTEND Surgery
DX: E11.621 Type 2 diabetes mellitus with foot ulcer (principal); I83.025 Varicose veins of left lower extremity with ulcer other part of foot; L89.893 Pressure ulcer of other site, stage 3; L97.524 Non-pressure chronic ulcer of other part of left foot with necrosis of bone; I12.9 Hypertensive chronic kidney disease with stage 1 through stage 4 chronic kidney disease, or unspecified chronic kidney disease; E11.22 Type 2 diabetes mellitus with diabetic chronic kidney disease; N18.3 Chronic kidney disease, stage 3 (moderate); E11.40 Type 2 diabetes mellitus with diabetic neuropathy, unspecified; G60.9 Hereditary and idiopathic neuropathy, unspecified; I25.10 Atherosclerotic heart disease of native coronary artery without angina pectoris; L84 Corns and callosities; M81.0 Age-related osteoporosis without current pathological fracture; I25.2 Old myocardial infarction; E78.5 Hyperlipidemia, unspecified; Z79.01 Long term (current) use of anticoagulants; Z79.02 Long term (current) use of antithrombotics/antiplatelets; Z79.82 Long term (current) use of aspirin; Z79.899 Other long term (current) drug therapy; Z95.5 Presence of coronary angioplasty implant and graft
CPT/HCPCS: A4663; A6021; A6154; Q4038

== ENCOUNTER 2019-08-19 08:20 | Day surgery (SDC) | payer BC ==
[2019-08-19] MEDS ORDERED: LIDOcaine 2% 5ml jelly ONE (09:25)
== END 2019-08-19 11:10 | disposition home or self-care (01) ==
LOC: WOUND CARE 08:20
PROVIDERS: ATTEND Surgery
DX: E11.621 Type 2 diabetes mellitus with foot ulcer (principal); I83.025 Varicose veins of left lower extremity with ulcer other part of foot; L89.893 Pressure ulcer of other site, stage 3; L97.524 Non-pressure chronic ulcer of other part of left foot with necrosis of bone; I12.9 Hypertensive chronic kidney disease with stage 1 through stage 4 chronic kidney disease, or unspecified chronic kidney disease; E11.22 Type 2 diabetes mellitus with diabetic chronic kidney disease; N18.3 Chronic kidney disease, stage 3 (moderate); E11.40 Type 2 diabetes mellitus with diabetic neuropathy, unspecified; G60.9 Hereditary and idiopathic neuropathy, unspecified; I25.10 Atherosclerotic heart disease of native coronary artery without angina pectoris; L84 Corns and callosities; M81.0 Age-related osteoporosis without current pathological fracture; I25.2 Old myocardial infarction; E78.5 Hyperlipidemia, unspecified; Z79.01 Long term (current) use of anticoagulants; Z79.02 Long term (current) use of antithrombotics/antiplatelets; Z79.82 Long term (current) use of aspirin; Z79.899 Other long term (current) drug therapy; Z95.5 Presence of coronary angioplasty implant and graft
CPT/HCPCS: 11042; A6209; A4663; A6021; Q4038

== ENCOUNTER 2019-08-26 08:37 | Day surgery (SDC) | payer BC ==
[2019-08-26] MEDS ORDERED: LIDOcaine 2% 5ml jelly ONE (08:57)
== END 2019-08-26 10:15 | disposition home or self-care (01) ==
LOC: WOUND CARE 08:37
PROVIDERS: ATTEND Surgery
DX: E11.621 Type 2 diabetes mellitus with foot ulcer (principal); I83.025 Varicose veins of left lower extremity with ulcer other part of foot; L89.893 Pressure ulcer of other site, stage 3; L97.524 Non-pressure chronic ulcer of other part of left foot with necrosis of bone; I12.9 Hypertensive chronic kidney disease with stage 1 through stage 4 chronic kidney disease, or unspecified chronic kidney disease; E11.22 Type 2 diabetes mellitus with diabetic chronic kidney disease; N18.3 Chronic kidney disease, stage 3 (moderate); E11.40 Type 2 diabetes mellitus with diabetic neuropathy, unspecified; G60.9 Hereditary and idiopathic neuropathy, unspecified; I25.10 Atherosclerotic heart disease of native coronary artery without angina pectoris; L84 Corns and callosities; M81.0 Age-related osteoporosis without current pathological fracture; I25.2 Old myocardial infarction; E78.5 Hyperlipidemia, unspecified; Z79.01 Long term (current) use of anticoagulants; Z79.02 Long term (current) use of antithrombotics/antiplatelets; Z79.82 Long term (current) use of aspirin; Z79.899 Other long term (current) drug therapy; Z95.5 Presence of coronary angioplasty implant and graft
CPT/HCPCS: 11042; A6209; A4663; A6021; A6154; A6446

== ENCOUNTER 2019-08-30 10:30 | Day surgery (SDC) | payer BC | END 2019-08-30 11:53 | disposition home or self-care (01) | LOC: WOUND CARE 10:30 | PROVIDERS: ATTEND Surgery | DX: E11.621 Type 2 diabetes mellitus with foot ulcer (principal); I83.025 Varicose veins of left lower extremity with ulcer other part of foot; L89.893 Pressure ulcer of other site, stage 3; L97.524 Non-pressure chronic ulcer of other part of left foot with necrosis of bone; I12.9 Hypertensive chronic kidney disease with stage 1 through stage 4 chronic kidney disease, or unspecified chronic kidney disease; E11.22 Type 2 diabetes mellitus with diabetic chronic kidney disease; N18.3 Chronic kidney disease, stage 3 (moderate); E11.40 Type 2 diabetes mellitus with diabetic neuropathy, unspecified; G60.9 Hereditary and idiopathic neuropathy, unspecified; I25.10 Atherosclerotic heart disease of native coronary artery without angina pectoris; L84 Corns and callosities; M81.0 Age-related osteoporosis without current pathological fracture; M10.9 Gout, unspecified; I25.2 Old myocardial infarction; E78.5 Hyperlipidemia, unspecified; Z79.01 Long term (current) use of anticoagulants; Z79.02 Long term (current) use of antithrombotics/antiplatelets; Z79.82 Long term (current) use of aspirin; Z79.899 Other long term (current) drug therapy; Z95.5 Presence of coronary angioplasty implant and graft | CPT/HCPCS: 29445; A4663; A6021; A6154; Q4038 ==

== ENCOUNTER 2019-09-09 08:20 | Day surgery (SDC) | payer BC ==
[2019-09-09] MEDS ORDERED: LIDOcaine 2% 5ml jelly ONE (09:16)
== END 2019-09-09 10:42 | disposition home or self-care (01) ==
LOC: WOUND CARE 08:20
PROVIDERS: ATTEND Surgery
DX: E11.621 Type 2 diabetes mellitus with foot ulcer (principal); I83.025 Varicose veins of left lower extremity with ulcer other part of foot; L89.893 Pressure ulcer of other site, stage 3; L97.524 Non-pressure chronic ulcer of other part of left foot with necrosis of bone; I12.9 Hypertensive chronic kidney disease with stage 1 through stage 4 chronic kidney disease, or unspecified chronic kidney disease; E11.22 Type 2 diabetes mellitus with diabetic chronic kidney disease; N18.3 Chronic kidney disease, stage 3 (moderate); E11.40 Type 2 diabetes mellitus with diabetic neuropathy, unspecified; G60.9 Hereditary and idiopathic neuropathy, unspecified; I25.10 Atherosclerotic heart disease of native coronary artery without angina pectoris; L84 Corns and callosities; M81.0 Age-related osteoporosis without current pathological fracture; I25.2 Old myocardial infarction; E78.5 Hyperlipidemia, unspecified; Z79.01 Long term (current) use of anticoagulants; Z79.02 Long term (current) use of antithrombotics/antiplatelets; Z79.82 Long term (current) use of aspirin; Z79.899 Other long term (current) drug therapy; Z95.5 Presence of coronary angioplasty implant and graft
CPT/HCPCS: 97597; A6021; A6154; Q4038

== ENCOUNTER 2019-09-16 08:05 | Day surgery (SDC) | payer BC ==
[2019-09-16] MEDS ORDERED: LIDOcaine 2% 5ml jelly ONE (09:16)
== END 2019-09-16 10:51 | disposition home or self-care (01) ==
LOC: WOUND CARE 08:05
PROVIDERS: ATTEND Surgery
DX: E11.621 Type 2 diabetes mellitus with foot ulcer (principal); I83.025 Varicose veins of left lower extremity with ulcer other part of foot; L89.893 Pressure ulcer of other site, stage 3; L97.524 Non-pressure chronic ulcer of other part of left foot with necrosis of bone; I12.9 Hypertensive chronic kidney disease with stage 1 through stage 4 chronic kidney disease, or unspecified chronic kidney disease; E11.22 Type 2 diabetes mellitus with diabetic chronic kidney disease; N18.3 Chronic kidney disease, stage 3 (moderate); E11.40 Type 2 diabetes mellitus with diabetic neuropathy, unspecified; G60.9 Hereditary and idiopathic neuropathy, unspecified; I25.10 Atherosclerotic heart disease of native coronary artery without angina pectoris; L84 Corns and callosities; M81.0 Age-related osteoporosis without current pathological fracture; I25.2 Old myocardial infarction; E78.5 Hyperlipidemia, unspecified; Z79.01 Long term (current) use of anticoagulants; Z79.02 Long term (current) use of antithrombotics/antiplatelets; Z79.82 Long term (current) use of aspirin; Z79.899 Other long term (current) drug therapy; Z95.5 Presence of coronary angioplasty implant and graft
CPT/HCPCS: 97597; A6209; A4663; A6021; A6154; Q4038

== ENCOUNTER 2019-09-23 08:10 | Outpatient (CLI) | payer BC ==
[2019-09-23] MEDS ORDERED: LIDOcaine/PRILOcaine 5gm cream TP ONE (09:10)
[2019-09-23] MEDS ORDERED: Silvasorb gel 45gm tube TP ONE (10:13)
== END 2019-09-23 10:53 | disposition home or self-care (01) ==
LOC: WOUND CARE 08:10 → EDSTATUS 08:30 → WOUND CARE 10:53
PROVIDERS: ATTEND Surgery
DX: E11.621 Type 2 diabetes mellitus with foot ulcer (principal); I83.025 Varicose veins of left lower extremity with ulcer other part of foot; L89.893 Pressure ulcer of other site, stage 3; L97.524 Non-pressure chronic ulcer of other part of left foot with necrosis of bone; I12.9 Hypertensive chronic kidney disease with stage 1 through stage 4 chronic kidney disease, or unspecified chronic kidney disease; E11.22 Type 2 diabetes mellitus with diabetic chronic kidney disease; N18.3 Chronic kidney disease, stage 3 (moderate); E11.40 Type 2 diabetes mellitus with diabetic neuropathy, unspecified; G60.9 Hereditary and idiopathic neuropathy, unspecified; I25.10 Atherosclerotic heart disease of native coronary artery without angina pectoris; L84 Corns and callosities; M81.0 Age-related osteoporosis without current pathological fracture; I25.2 Old myocardial infarction; E78.5 Hyperlipidemia, unspecified; Z79.01 Long term (current) use of anticoagulants; Z79.02 Long term (current) use of antithrombotics/antiplatelets; Z79.82 Long term (current) use of aspirin; Z79.899 Other long term (current) drug therapy; Z95.5 Presence of coronary angioplasty implant and graft
CPT/HCPCS: 29445; A4215; Q4038

== ENCOUNTER 2019-09-30 07:55 | Outpatient (CLI) | payer BC | END 2019-09-30 10:55 | disposition home or self-care (01) | LOC: WOUND CARE 07:55 → EDSTATUS 08:30 → WOUND CARE 10:55 | PROVIDERS: ATTEND Surgery | DX: E11.621 Type 2 diabetes mellitus with foot ulcer (principal); I83.025 Varicose veins of left lower extremity with ulcer other part of foot; L89.893 Pressure ulcer of other site, stage 3; L97.524 Non-pressure chronic ulcer of other part of left foot with necrosis of bone; I12.9 Hypertensive chronic kidney disease with stage 1 through stage 4 chronic kidney disease, or unspecified chronic kidney disease; E11.22 Type 2 diabetes mellitus with diabetic chronic kidney disease; N18.3 Chronic kidney disease, stage 3 (moderate); E11.42 Type 2 diabetes mellitus with diabetic polyneuropathy; M10.9 Gout, unspecified; I25.10 Atherosclerotic heart disease of native coronary artery without angina pectoris; L84 Corns and callosities; M81.0 Age-related osteoporosis without current pathological fracture; I25.2 Old myocardial infarction; E78.5 Hyperlipidemia, unspecified; Z79.01 Long term (current) use of anticoagulants; Z79.02 Long term (current) use of antithrombotics/antiplatelets; Z79.82 Long term (current) use of aspirin; Z79.899 Other long term (current) drug therapy; Z95.5 Presence of coronary angioplasty implant and graft | CPT/HCPCS: A4663; A6234; A6446; G0463 ==

== ENCOUNTER 2019-10-07 07:45 | Day surgery (SDC) | payer BC ==
[2019-10-07] MEDS ORDERED: LIDOcaine/PRILOcaine 5gm cream TP ONE (08:50)
== END 2019-10-07 11:09 | disposition home or self-care (01) ==
LOC: WOUND CARE 07:45
PROVIDERS: ATTEND Surgery
DX: E11.621 Type 2 diabetes mellitus with foot ulcer (principal); I83.025 Varicose veins of left lower extremity with ulcer other part of foot; L89.893 Pressure ulcer of other site, stage 3; L97.523 Non-pressure chronic ulcer of other part of left foot with necrosis of muscle; I12.9 Hypertensive chronic kidney disease with stage 1 through stage 4 chronic kidney disease, or unspecified chronic kidney disease; E11.22 Type 2 diabetes mellitus with diabetic chronic kidney disease; N18.3 Chronic kidney disease, stage 3 (moderate); E11.42 Type 2 diabetes mellitus with diabetic polyneuropathy; M10.9 Gout, unspecified; I25.10 Atherosclerotic heart disease of native coronary artery without angina pectoris; L84 Corns and callosities; M81.0 Age-related osteoporosis without current pathological fracture; I25.2 Old myocardial infarction; E78.5 Hyperlipidemia, unspecified; Z79.01 Long term (current) use of anticoagulants; Z79.02 Long term (current) use of antithrombotics/antiplatelets; Z79.82 Long term (current) use of aspirin; Z79.899 Other long term (current) drug therapy; Z95.5 Presence of coronary angioplasty implant and graft
CPT/HCPCS: 11042; A6209; A4663; A6021; A6154; A6446

== ENCOUNTER 2019-10-14 07:50 | Day surgery (SDC) | payer BC ==
[2019-10-14] MEDS ORDERED: LIDOcaine/PRILOcaine 5gm cream TP ONE (08:47)
== END 2019-10-14 10:37 | disposition home or self-care (01) ==
LOC: WOUND CARE 07:50
PROVIDERS: ATTEND Surgery
DX: E11.621 Type 2 diabetes mellitus with foot ulcer (principal); I83.025 Varicose veins of left lower extremity with ulcer other part of foot; L89.893 Pressure ulcer of other site, stage 3; L97.523 Non-pressure chronic ulcer of other part of left foot with necrosis of muscle; I12.9 Hypertensive chronic kidney disease with stage 1 through stage 4 chronic kidney disease, or unspecified chronic kidney disease; E11.22 Type 2 diabetes mellitus with diabetic chronic kidney disease; N18.3 Chronic kidney disease, stage 3 (moderate); E11.42 Type 2 diabetes mellitus with diabetic polyneuropathy; M10.9 Gout, unspecified; I25.10 Atherosclerotic heart disease of native coronary artery without angina pectoris; L84 Corns and callosities; M81.0 Age-related osteoporosis without current pathological fracture; I25.2 Old myocardial infarction; E78.5 Hyperlipidemia, unspecified; Z79.01 Long term (current) use of anticoagulants; Z79.02 Long term (current) use of antithrombotics/antiplatelets; Z79.82 Long term (current) use of aspirin; Z79.899 Other long term (current) drug therapy; Z95.5 Presence of coronary angioplasty implant and graft
CPT/HCPCS: 11042; A6209; A4663; A6021; A6154; Q4038

== ENCOUNTER 2019-10-22 07:45 | Day surgery (SDC) | payer BC ==
[2019-10-22] MEDS ORDERED: LIDOcaine 2% 5ml jelly ONE (08:48)
== END 2019-10-22 10:02 | disposition home or self-care (01) ==
LOC: WOUND CARE 07:45
PROVIDERS: ATTEND Nurse Practitioner Family
DX: E11.621 Type 2 diabetes mellitus with foot ulcer (principal); I83.025 Varicose veins of left lower extremity with ulcer other part of foot; L89.893 Pressure ulcer of other site, stage 3; L97.523 Non-pressure chronic ulcer of other part of left foot with necrosis of muscle; I12.9 Hypertensive chronic kidney disease with stage 1 through stage 4 chronic kidney disease, or unspecified chronic kidney disease; E11.22 Type 2 diabetes mellitus with diabetic chronic kidney disease; N18.3 Chronic kidney disease, stage 3 (moderate); E11.42 Type 2 diabetes mellitus with diabetic polyneuropathy; M10.9 Gout, unspecified; I25.10 Atherosclerotic heart disease of native coronary artery without angina pectoris; L84 Corns and callosities; M81.0 Age-related osteoporosis without current pathological fracture; I25.2 Old myocardial infarction; E78.5 Hyperlipidemia, unspecified; Z79.01 Long term (current) use of anticoagulants; Z79.02 Long term (current) use of antithrombotics/antiplatelets; Z79.82 Long term (current) use of aspirin; Z79.899 Other long term (current) drug therapy; Z95.5 Presence of coronary angioplasty implant and graft
CPT/HCPCS: 97597; A4663; A6021; A6154; Q4038

== ENCOUNTER 2019-10-23 18:50 | Emergency (ER) | payer BC, MEDICAID ==
[~2019-10-23] VITALS: Ht 185.4 cm; Wt 90.0 kg
[2019-10-23 19:27] LABS: BASOPHILS # (AUTO) 0.1 X10'3 (0-0.2); BASOPHILS % (AUTO) 0.6 % (0-1); EOSINOPHILS # (AUTO) 0.1 X10'3 (0-0.9); HEMATOCRIT 43.9 % (42.0-52.0); HEMOGLOBIN 15.5 g/dl (14.0-17.9); LYMPHOCYTES # (AUTO) 2.2 X10'3 (1.1-4.8); LYMPHOCYTES % (AUTO) 20.1 % (21-51); MEAN CORPUSCULAR HEMOGLOBIN 29.1 PG (27.0-31.0); MEAN CORPUSCULAR HGB CONC 35.4 g/dL (33.0-36.5); MEAN CORPUSCULAR VOLUME 82.4 FL (78-98); MEAN PLATELET VOLUME 8.5 FL (7.4-10.4); MONOCYTES # (AUTO) 0.6 X10'3 (0-0.9); MONOCYTES % (AUTO) 5.3 % (2-12); NEUTROPHILS # (AUTO) 7.8 X10'3 (1.8-7.7); PLATELET COUNT 236 X10'3 (140-440); RED BLOOD COUNT 5.32 X10'6 (4.70-6.10); RED CELL DISTRIBUTION WIDTH 13.4 % (11.5-14.5); WHITE BLOOD COUNT 10.7 X10'3 (4.5-11.0)
[2019-10-23 19:41] LABS: ALANINE AMINOTRANSFERASE 33 U/L (12-78); ALBUMIN 4.2 G/DL (3.4-5.0); ALBUMIN/GLOBULIN RATIO 1.3 (1.1-1.5); ALKALINE PHOSPHATASE 102 IU/L (46-116); ANION GAP 8 (8-16); ASPARTATE AMINO TRANSFERASE 20 U/L (10-37); BILIRUBIN,TOTAL 0.7 MG/DL (0.1-1.0); BLOOD UREA NITROGEN 21 MG/DL (7-18); BUN/CREATININE RATIO 17.1 (5.4-32.0); CALCIUM 9.3 MG/DL (8.5-10.1); CHLORIDE 106 MMOL/L (99-107); CREATININE 1.23 MG/DL (0.60-1.10); GLUCOSE 107 MG/DL (70-104); POTASSIUM 2.9 MMOL/L (3.5-5.1); SODIUM 147 MMOL/L (135-145); TOTAL CARBON DIOXIDE 32.6 MMOL/L (24-32); TOTAL PROTEIN 7.5 G/DL (6.4-8.2); eGFR 61 ML/MIN
[2019-10-23] MEDS ORDERED: potassium Cl 20 mEq SR tablet PO STA (19:53)
[2019-10-23 22:56] VITALS: BP 149/80
== END 2019-10-23 22:57 | disposition home or self-care (01) ==
LOC: ER 18:50
DX: R07.89 Other chest pain (principal); E87.6 Hypokalemia; E78.00 Pure hypercholesterolemia, unspecified; I10 Essential (primary) hypertension; I25.2 Old myocardial infarction; E11.9 Type 2 diabetes mellitus without complications; E78.2 Mixed hyperlipidemia; Z79.82 Long term (current) use of aspirin; Z79.899 Other long term (current) drug therapy
CPT/HCPCS: 36415; 71045; 80053; 84484; 85025; 93005; 99284

== ENCOUNTER 2019-10-28 07:50 | Day surgery (SDC) | payer MEDICAID ==
[2019-10-28] MEDS ORDERED: LIDOcaine/PRILOcaine 5gm cream TP ONE (08:42)
== END 2019-10-28 10:58 | disposition home or self-care (01) ==
LOC: WOUND CARE 07:50
PROVIDERS: ATTEND Surgery
DX: E11.621 Type 2 diabetes mellitus with foot ulcer (principal); I83.025 Varicose veins of left lower extremity with ulcer other part of foot; L89.893 Pressure ulcer of other site, stage 3; L97.523 Non-pressure chronic ulcer of other part of left foot with necrosis of muscle; I12.9 Hypertensive chronic kidney disease with stage 1 through stage 4 chronic kidney disease, or unspecified chronic kidney disease; E11.22 Type 2 diabetes mellitus with diabetic chronic kidney disease; N18.3 Chronic kidney disease, stage 3 (moderate); E11.42 Type 2 diabetes mellitus with diabetic polyneuropathy; I25.10 Atherosclerotic heart disease of native coronary artery without angina pectoris; M81.0 Age-related osteoporosis without current pathological fracture; L84 Corns and callosities; M10.9 Gout, unspecified; E78.5 Hyperlipidemia, unspecified; I25.2 Old myocardial infarction; Z79.899 Other long term (current) drug therapy; Z95.5 Presence of coronary angioplasty implant and graft; Z79.82 Long term (current) use of aspirin
CPT/HCPCS: 15275; A6222; Q4196; 15276; A4663; A6212; Q4038

== ENCOUNTER → 2019-11-04 | Outpatient (CLI) | payer MEDICAID | END | disposition home or self-care (01) | LOC: WOUND CARE 07:55 → EDSTATUS 08:30 | PROVIDERS: ATTEND Surgery | DX: E11.621 Type 2 diabetes mellitus with foot ulcer (principal); I83.025 Varicose veins of left lower extremity with ulcer other part of foot; L89.893 Pressure ulcer of other site, stage 3; L97.523 Non-pressure chronic ulcer of other part of left foot with necrosis of muscle; E11.22 Type 2 diabetes mellitus with diabetic chronic kidney disease; I12.9 Hypertensive chronic kidney disease with stage 1 through stage 4 chronic kidney disease, or unspecified chronic kidney disease; N18.3 Chronic kidney disease, stage 3 (moderate); E11.42 Type 2 diabetes mellitus with diabetic polyneuropathy; M81.0 Age-related osteoporosis without current pathological fracture; I25.10 Atherosclerotic heart disease of native coronary artery without angina pectoris; L02.612 Cutaneous abscess of left foot; L84 Corns and callosities; I25.2 Old myocardial infarction; E78.2 Mixed hyperlipidemia; Z95.5 Presence of coronary angioplasty implant and graft; Z79.899 Other long term (current) drug therapy; Z79.01 Long term (current) use of anticoagulants; Z79.02 Long term (current) use of antithrombotics/antiplatelets; Z79.82 Long term (current) use of aspirin | CPT/HCPCS: 29445; A4663; Q4038 ==

== ENCOUNTER 2019-11-11 07:55 | Day surgery (SDC) | payer MEDICAID ==
[2019-11-11] MEDS ORDERED: LIDOcaine 2% 5ml jelly ONE (09:51)
== END 2019-11-11 10:59 | disposition home or self-care (01) ==
LOC: WOUND CARE 07:55
PROVIDERS: ATTEND Surgery
DX: E11.621 Type 2 diabetes mellitus with foot ulcer (principal); I83.025 Varicose veins of left lower extremity with ulcer other part of foot; L89.893 Pressure ulcer of other site, stage 3; L97.523 Non-pressure chronic ulcer of other part of left foot with necrosis of muscle; I12.9 Hypertensive chronic kidney disease with stage 1 through stage 4 chronic kidney disease, or unspecified chronic kidney disease; E11.22 Type 2 diabetes mellitus with diabetic chronic kidney disease; N18.3 Chronic kidney disease, stage 3 (moderate); E11.42 Type 2 diabetes mellitus with diabetic polyneuropathy; I25.10 Atherosclerotic heart disease of native coronary artery without angina pectoris; M81.0 Age-related osteoporosis without current pathological fracture; L84 Corns and callosities; M10.9 Gout, unspecified; E78.5 Hyperlipidemia, unspecified; E78.00 Pure hypercholesterolemia, unspecified; E78.2 Mixed hyperlipidemia; I25.2 Old myocardial infarction; Z79.899 Other long term (current) drug therapy; Z95.5 Presence of coronary angioplasty implant and graft; Z79.82 Long term (current) use of aspirin; Z79.01 Long term (current) use of anticoagulants; Z79.02 Long term (current) use of antithrombotics/antiplatelets
CPT/HCPCS: 15275; A6209; A6222; Q4187; A4663; A6250; Q4038

== ENCOUNTER 2019-11-18 08:28 | Outpatient (CLI) | payer MEDICAID ==
[2019-11-18] MEDS ORDERED: LIDOcaine 2% 5ml jelly ONE (09:38)
== END 2019-11-18 10:17 | disposition home or self-care (01) ==
LOC: WOUND CARE 08:28 → EDSTATUS 08:30 → WOUND CARE 10:17
PROVIDERS: ATTEND Surgery
DX: E11.621 Type 2 diabetes mellitus with foot ulcer (principal); I83.025 Varicose veins of left lower extremity with ulcer other part of foot; L89.893 Pressure ulcer of other site, stage 3; L97.523 Non-pressure chronic ulcer of other part of left foot with necrosis of muscle; I12.9 Hypertensive chronic kidney disease with stage 1 through stage 4 chronic kidney disease, or unspecified chronic kidney disease; E11.22 Type 2 diabetes mellitus with diabetic chronic kidney disease; N18.3 Chronic kidney disease, stage 3 (moderate); E11.42 Type 2 diabetes mellitus with diabetic polyneuropathy; I25.10 Atherosclerotic heart disease of native coronary artery without angina pectoris; M81.0 Age-related osteoporosis without current pathological fracture; L84 Corns and callosities; M10.9 Gout, unspecified; E78.5 Hyperlipidemia, unspecified; E78.00 Pure hypercholesterolemia, unspecified; E78.2 Mixed hyperlipidemia; I25.2 Old myocardial infarction; Z79.899 Other long term (current) drug therapy; Z95.5 Presence of coronary angioplasty implant and graft; Z79.82 Long term (current) use of aspirin; Z79.01 Long term (current) use of anticoagulants; Z79.02 Long term (current) use of antithrombotics/antiplatelets
CPT/HCPCS: A4663; A6021; A6154; A6446; G0463

== ENCOUNTER 2019-11-21 08:00 | Day surgery (SDC) | payer MEDICAID ==
[2019-11-21] MEDS ORDERED: LIDOcaine/PRILOcaine 5gm cream TP ONE (08:45)
== END 2019-11-21 10:36 | disposition home or self-care (01) ==
LOC: WOUND CARE 08:00
PROVIDERS: ATTEND Surgery
DX: E11.621 Type 2 diabetes mellitus with foot ulcer (principal); I83.025 Varicose veins of left lower extremity with ulcer other part of foot; L89.893 Pressure ulcer of other site, stage 3; L97.523 Non-pressure chronic ulcer of other part of left foot with necrosis of muscle; I12.9 Hypertensive chronic kidney disease with stage 1 through stage 4 chronic kidney disease, or unspecified chronic kidney disease; E11.22 Type 2 diabetes mellitus with diabetic chronic kidney disease; N18.3 Chronic kidney disease, stage 3 (moderate); E11.42 Type 2 diabetes mellitus with diabetic polyneuropathy; I25.10 Atherosclerotic heart disease of native coronary artery without angina pectoris; M81.0 Age-related osteoporosis without current pathological fracture; L84 Corns and callosities; M10.9 Gout, unspecified; E78.5 Hyperlipidemia, unspecified; E78.00 Pure hypercholesterolemia, unspecified; E78.2 Mixed hyperlipidemia; I25.2 Old myocardial infarction; Z79.899 Other long term (current) drug therapy; Z95.5 Presence of coronary angioplasty implant and graft; Z79.82 Long term (current) use of aspirin; Z79.01 Long term (current) use of anticoagulants; Z79.02 Long term (current) use of antithrombotics/antiplatelets
CPT/HCPCS: 15275; A6209; Q4187; A4663; A6250; Q4038

== ENCOUNTER 2019-12-16 08:05 | Outpatient (CLI) | payer MEDICAID ==
[2019-12-16] MEDS ORDERED: LIDOcaine 2% 5ml jelly ONE (09:27)
== END 2019-12-16 10:32 | disposition home or self-care (01) ==
LOC: WOUND CARE 08:05
PROVIDERS: ATTEND Surgery
DX: E11.621 Type 2 diabetes mellitus with foot ulcer (principal); I83.025 Varicose veins of left lower extremity with ulcer other part of foot; L89.893 Pressure ulcer of other site, stage 3; L97.523 Non-pressure chronic ulcer of other part of left foot with necrosis of muscle; I12.9 Hypertensive chronic kidney disease with stage 1 through stage 4 chronic kidney disease, or unspecified chronic kidney disease; E11.22 Type 2 diabetes mellitus with diabetic chronic kidney disease; N18.3 Chronic kidney disease, stage 3 (moderate); E11.42 Type 2 diabetes mellitus with diabetic polyneuropathy; I25.10 Atherosclerotic heart disease of native coronary artery without angina pectoris; M81.0 Age-related osteoporosis without current pathological fracture; L84 Corns and callosities; M10.9 Gout, unspecified; E78.5 Hyperlipidemia, unspecified; E78.00 Pure hypercholesterolemia, unspecified; E78.2 Mixed hyperlipidemia; I25.2 Old myocardial infarction; Z79.899 Other long term (current) drug therapy; Z95.5 Presence of coronary angioplasty implant and graft; Z79.82 Long term (current) use of aspirin; Z79.01 Long term (current) use of anticoagulants; Z79.02 Long term (current) use of antithrombotics/antiplatelets
CPT/HCPCS: G0463

== ENCOUNTER 2019-12-23 08:00 | Day surgery (SDC) | payer MEDICAID ==
[2019-12-23] MEDS ORDERED: LIDOcaine/PRILOcaine 5gm cream TP ONE (08:46)
== END 2019-12-23 10:56 | disposition home or self-care (01) ==
LOC: WOUND CARE 08:00
PROVIDERS: ATTEND Surgery
DX: E11.621 Type 2 diabetes mellitus with foot ulcer (principal); I83.025 Varicose veins of left lower extremity with ulcer other part of foot; L89.893 Pressure ulcer of other site, stage 3; L97.523 Non-pressure chronic ulcer of other part of left foot with necrosis of muscle; I12.9 Hypertensive chronic kidney disease with stage 1 through stage 4 chronic kidney disease, or unspecified chronic kidney disease; E11.22 Type 2 diabetes mellitus with diabetic chronic kidney disease; N18.3 Chronic kidney disease, stage 3 (moderate); E11.42 Type 2 diabetes mellitus with diabetic polyneuropathy; I25.10 Atherosclerotic heart disease of native coronary artery without angina pectoris; M81.0 Age-related osteoporosis without current pathological fracture; L84 Corns and callosities; M10.9 Gout, unspecified; E78.5 Hyperlipidemia, unspecified; E78.00 Pure hypercholesterolemia, unspecified; E78.2 Mixed hyperlipidemia; I25.2 Old myocardial infarction; Z79.899 Other long term (current) drug therapy; Z95.5 Presence of coronary angioplasty implant and graft; Z79.82 Long term (current) use of aspirin; Z79.01 Long term (current) use of anticoagulants; Z79.02 Long term (current) use of antithrombotics/antiplatelets
CPT/HCPCS: 15275; A6209; Q4187; A6154; Q4038

== ENCOUNTER 2019-12-30 08:01 | Outpatient (CLI) | payer MEDICAID ==
[2019-12-30] MEDS ORDERED: LIDOcaine 2% 5ml jelly ONE (09:52)
== END 2019-12-30 11:20 | disposition home or self-care (01) ==
LOC: WOUND CARE 08:01
PROVIDERS: ATTEND Surgery
DX: E11.621 Type 2 diabetes mellitus with foot ulcer (principal); I83.025 Varicose veins of left lower extremity with ulcer other part of foot; L89.893 Pressure ulcer of other site, stage 3; L97.523 Non-pressure chronic ulcer of other part of left foot with necrosis of muscle; I12.9 Hypertensive chronic kidney disease with stage 1 through stage 4 chronic kidney disease, or unspecified chronic kidney disease; E11.22 Type 2 diabetes mellitus with diabetic chronic kidney disease; N18.3 Chronic kidney disease, stage 3 (moderate); E11.42 Type 2 diabetes mellitus with diabetic polyneuropathy; I25.10 Atherosclerotic heart disease of native coronary artery without angina pectoris; L84 Corns and callosities; L03.032 Cellulitis of left toe; M81.0 Age-related osteoporosis without current pathological fracture; M10.9 Gout, unspecified; E78.5 Hyperlipidemia, unspecified; E78.00 Pure hypercholesterolemia, unspecified; E78.2 Mixed hyperlipidemia; I25.2 Old myocardial infarction; Z79.899 Other long term (current) drug therapy; Z95.5 Presence of coronary angioplasty implant and graft; Z79.82 Long term (current) use of aspirin; Z79.01 Long term (current) use of anticoagulants; Z79.02 Long term (current) use of antithrombotics/antiplatelets
CPT/HCPCS: 29445; 97597; A4663; A6021; A6154; Q4038

== ENCOUNTER 2020-01-06 08:02 | Day surgery (SDC) | payer MEDICAID ==
[2020-01-06] MEDS ORDERED: LIDOcaine 2% 5ml jelly ONE (09:31)
[2020-01-06] MEDS ORDERED: mupirocin 2% ointment 22GM ONE (10:18)
== END 2020-01-06 10:35 | disposition home or self-care (01) ==
LOC: WOUND CARE 08:02
PROVIDERS: ATTEND Surgery
DX: E11.621 Type 2 diabetes mellitus with foot ulcer (principal); I83.025 Varicose veins of left lower extremity with ulcer other part of foot; L89.893 Pressure ulcer of other site, stage 3; L97.523 Non-pressure chronic ulcer of other part of left foot with necrosis of muscle; I12.9 Hypertensive chronic kidney disease with stage 1 through stage 4 chronic kidney disease, or unspecified chronic kidney disease; E11.22 Type 2 diabetes mellitus with diabetic chronic kidney disease; N18.3 Chronic kidney disease, stage 3 (moderate); E11.42 Type 2 diabetes mellitus with diabetic polyneuropathy; I25.10 Atherosclerotic heart disease of native coronary artery without angina pectoris; M81.0 Age-related osteoporosis without current pathological fracture; L84 Corns and callosities; M10.9 Gout, unspecified; E78.5 Hyperlipidemia, unspecified; E78.00 Pure hypercholesterolemia, unspecified; E78.2 Mixed hyperlipidemia; I25.2 Old myocardial infarction; Z79.899 Other long term (current) drug therapy; Z95.5 Presence of coronary angioplasty implant and graft; Z79.82 Long term (current) use of aspirin; Z79.01 Long term (current) use of anticoagulants; Z79.02 Long term (current) use of antithrombotics/antiplatelets
CPT/HCPCS: 97597; A6209; A4663; A6021; A6154; A6446

== ENCOUNTER 2020-01-13 08:50 | Day surgery (SDC) | payer MEDICAID ==
[2020-01-13] MEDS ORDERED: LIDOcaine 2% 5ml jelly ONE (09:12)
[2020-01-13] MEDS ORDERED: mupirocin 2% ointment 22GM ONE (10:10)
== END 2020-01-13 10:19 | disposition home or self-care (01) ==
LOC: WOUND CARE 08:50
PROVIDERS: ATTEND Surgery
DX: E11.621 Type 2 diabetes mellitus with foot ulcer (principal); I83.025 Varicose veins of left lower extremity with ulcer other part of foot; L89.893 Pressure ulcer of other site, stage 3; L97.523 Non-pressure chronic ulcer of other part of left foot with necrosis of muscle; I12.9 Hypertensive chronic kidney disease with stage 1 through stage 4 chronic kidney disease, or unspecified chronic kidney disease; E11.22 Type 2 diabetes mellitus with diabetic chronic kidney disease; N18.3 Chronic kidney disease, stage 3 (moderate); E11.42 Type 2 diabetes mellitus with diabetic polyneuropathy; I25.10 Atherosclerotic heart disease of native coronary artery without angina pectoris; L84 Corns and callosities; L03.032 Cellulitis of left toe; M81.0 Age-related osteoporosis without current pathological fracture; M10.9 Gout, unspecified; E78.5 Hyperlipidemia, unspecified; E78.00 Pure hypercholesterolemia, unspecified; E78.2 Mixed hyperlipidemia; I25.2 Old myocardial infarction; Z79.899 Other long term (current) drug therapy; Z95.5 Presence of coronary angioplasty implant and graft; Z79.82 Long term (current) use of aspirin; Z79.01 Long term (current) use of anticoagulants; Z79.02 Long term (current) use of antithrombotics/antiplatelets
CPT/HCPCS: 15275; Q4187

== ENCOUNTER 2020-01-20 09:09 | Outpatient (CLI) | payer MEDICAID ==
[2020-01-20] MEDS ORDERED: LIDOcaine 2% 5ml jelly ONE (09:17)
[2020-01-20] MEDS ORDERED: mupirocin 2% ointment 22GM ONE (10:04)
== END 2020-01-20 10:20 | disposition home or self-care (01) ==
LOC: WOUND CARE 09:09
PROVIDERS: ATTEND Emergency Medicine
DX: E11.621 Type 2 diabetes mellitus with foot ulcer (principal); I83.025 Varicose veins of left lower extremity with ulcer other part of foot; L89.893 Pressure ulcer of other site, stage 3; L97.523 Non-pressure chronic ulcer of other part of left foot with necrosis of muscle; I12.9 Hypertensive chronic kidney disease with stage 1 through stage 4 chronic kidney disease, or unspecified chronic kidney disease; E11.22 Type 2 diabetes mellitus with diabetic chronic kidney disease; N18.3 Chronic kidney disease, stage 3 (moderate); E11.42 Type 2 diabetes mellitus with diabetic polyneuropathy; I25.10 Atherosclerotic heart disease of native coronary artery without angina pectoris; L84 Corns and callosities; L03.032 Cellulitis of left toe; M81.0 Age-related osteoporosis without current pathological fracture; M10.9 Gout, unspecified; E78.5 Hyperlipidemia, unspecified; E78.00 Pure hypercholesterolemia, unspecified; E78.2 Mixed hyperlipidemia; I25.2 Old myocardial infarction; Z79.899 Other long term (current) drug therapy; Z95.5 Presence of coronary angioplasty implant and graft; Z79.82 Long term (current) use of aspirin; Z79.01 Long term (current) use of anticoagulants; Z79.02 Long term (current) use of antithrombotics/antiplatelets
CPT/HCPCS: G0463

== ENCOUNTER 2020-01-27 08:46 | Day surgery (SDC) | payer MEDICAID ==
[2020-01-27] MEDS ORDERED: LIDOcaine 1%/PF 5ML 10 MG/ML VIAL ONE ×2 (10:15→10:26)
== END 2020-01-27 11:03 | disposition home or self-care (01) ==
LOC: WOUND CARE 08:46
PROVIDERS: ATTEND Nurse Practitioner
DX: E11.621 Type 2 diabetes mellitus with foot ulcer (principal); I83.025 Varicose veins of left lower extremity with ulcer other part of foot; L89.893 Pressure ulcer of other site, stage 3; L97.523 Non-pressure chronic ulcer of other part of left foot with necrosis of muscle; I12.9 Hypertensive chronic kidney disease with stage 1 through stage 4 chronic kidney disease, or unspecified chronic kidney disease; E11.22 Type 2 diabetes mellitus with diabetic chronic kidney disease; N18.3 Chronic kidney disease, stage 3 (moderate); E11.42 Type 2 diabetes mellitus with diabetic polyneuropathy; I25.10 Atherosclerotic heart disease of native coronary artery without angina pectoris; L84 Corns and callosities; L03.032 Cellulitis of left toe; M81.0 Age-related osteoporosis without current pathological fracture; M10.9 Gout, unspecified; E78.5 Hyperlipidemia, unspecified; E78.00 Pure hypercholesterolemia, unspecified; E78.2 Mixed hyperlipidemia; I25.2 Old myocardial infarction; Z79.899 Other long term (current) drug therapy; Z95.5 Presence of coronary angioplasty implant and graft; Z79.82 Long term (current) use of aspirin; Z79.01 Long term (current) use of anticoagulants; Z79.02 Long term (current) use of antithrombotics/antiplatelets
CPT/HCPCS: 11730; 87070; 87075; 87077; 87102; 87186; 93922; 93926

== ENCOUNTER 2020-02-03 08:40 | Outpatient (CLI) | payer MEDICAID ==
[2020-02-03] MEDS ORDERED: mupirocin 2% ointment 22GM ONE (08:58)
== END 2020-02-03 09:23 | disposition home or self-care (01) ==
LOC: WOUND CARE 08:40 → EDSTATUS 08:40 → WOUND CARE 09:23
PROVIDERS: ATTEND Nurse Practitioner
DX: E11.621 Type 2 diabetes mellitus with foot ulcer (principal); I83.025 Varicose veins of left lower extremity with ulcer other part of foot; L89.893 Pressure ulcer of other site, stage 3; L97.523 Non-pressure chronic ulcer of other part of left foot with necrosis of muscle; S90.411D Abrasion, right great toe, subsequent encounter; I12.9 Hypertensive chronic kidney disease with stage 1 through stage 4 chronic kidney disease, or unspecified chronic kidney disease; E11.22 Type 2 diabetes mellitus with diabetic chronic kidney disease; N18.3 Chronic kidney disease, stage 3 (moderate); E11.42 Type 2 diabetes mellitus with diabetic polyneuropathy; I25.10 Atherosclerotic heart disease of native coronary artery without angina pectoris; L84 Corns and callosities; L03.032 Cellulitis of left toe; M81.0 Age-related osteoporosis without current pathological fracture; M10.9 Gout, unspecified; E78.5 Hyperlipidemia, unspecified; E78.00 Pure hypercholesterolemia, unspecified; E78.2 Mixed hyperlipidemia; I25.2 Old myocardial infarction; Z79.899 Other long term (current) drug therapy; Z95.5 Presence of coronary angioplasty implant and graft; Z79.82 Long term (current) use of aspirin; Z79.01 Long term (current) use of anticoagulants; Z79.02 Long term (current) use of antithrombotics/antiplatelets; X58.XXXD Exposure to other specified factors, subsequent encounter
CPT/HCPCS: G0463

== ENCOUNTER 2020-02-16 09:47 | Emergency (ER) | payer MEDICAID ==
[~2020-02-16] VITALS: Ht 185.4 cm; Wt 100.0 kg
[2020-02-16] MEDS ORDERED: DOXY100C77 PO (10:21)
[2020-02-16 10:26] VITALS: BP 144/95
== END 2020-02-16 10:33 | disposition home or self-care (01) ==
LOC: ER 09:47
DX: L03.116 Cellulitis of left lower limb (principal); E78.00 Pure hypercholesterolemia, unspecified; I10 Essential (primary) hypertension; I25.2 Old myocardial infarction; Z79.82 Long term (current) use of aspirin; Z79.899 Other long term (current) drug therapy
CPT/HCPCS: 99283

== ENCOUNTER 2020-02-28 06:23 | Day surgery (SDC) | payer MEDICAID ==
[2020-02-26 10:21] LABS: BASOPHILS # (AUTO) 0.1 X10'3 (0-0.2); BASOPHILS % (AUTO) 1.1 % (0-1); EOSINOPHILS # (AUTO) 0.1 X10'3 (0-0.9); EOSINOPHILS % (AUTO) 0.9 % (0-6); HEMATOCRIT 41.5 % (42.0-52.0); HEMOGLOBIN 14.3 g/dl (14.0-17.9); LYMPHOCYTES % (AUTO) 11.2 % (21-51); MEAN CORPUSCULAR HEMOGLOBIN 29.2 PG (27.0-31.0); MEAN CORPUSCULAR HGB CONC 34.5 g/dL (33.0-36.5); MEAN CORPUSCULAR VOLUME 84.8 FL (78-98); MEAN PLATELET VOLUME 8.1 FL (7.4-10.4); MONOCYTES # (AUTO) 0.4 X10'3 (0-0.9); MONOCYTES % (AUTO) 4.3 % (2-12); NEUTROPHILS % (AUTO) 82.5 % (42-75); PLATELET COUNT 253 X10'3 (140-440); RED CELL DISTRIBUTION WIDTH 13.6 % (11.5-14.5); WHITE BLOOD COUNT 8.5 X10'3 (4.5-11.0)
[2020-02-26 10:30] LABS: ALBUMIN 3.8 G/DL (3.4-5.0); ANION GAP 6 (8-16); BLOOD UREA NITROGEN 21 MG/DL (7-18); BUN/CREATININE RATIO 17.2 (5.4-32.0); CALCIUM 9.6 MG/DL (8.5-10.1); CHLORIDE 105 MMOL/L (99-107); CREATININE 1.22 MG/DL (0.60-1.10); GLUCOSE 108 MG/DL (70-104); POTASSIUM 3.5 MMOL/L (3.5-5.1); SODIUM 145 MMOL/L (135-145); TOTAL CARBON DIOXIDE 33.6 MMOL/L (24-32); eGFR 61 ML/MIN
[2020-02-26 10:33] LABS: PARTIAL THROMBOPLASTIN TIME 32 SECONDS (22-32)
[~2020-02-28] VITALS: Ht 185.4 cm; Wt 100.0 kg
[2020-02-28] VITALS (9 sets, daily range): BP systolic 121–160; BP diastolic 59–92
[2020-02-28] MEDS ORDERED: normal saline 1,000 ML IV SCH (06:40)
[2020-02-28] MEDS ORDERED: LORazepam 0.5 MG tablet PO PRN (06:40)
[2020-02-28] MEDS ORDERED: diphenhydrAMINE 25mg capsule PO PRN (06:40)
[2020-02-28] MEDS ORDERED: HCTZ25T PO (06:57)
[2020-02-28] MEDS ORDERED: CARV-50 PO (06:57)
[2020-02-28] MEDS ORDERED: POTA10TA19 PO (06:58)
[2020-02-28] MEDS ORDERED: midazolam 2 mg/2 ml injection ONE (07:31)
[2020-02-28] MEDS ORDERED: fentaNYL/PF 50MCG/1 ML 2ML syringe ONE (07:31)
[2020-02-28] MEDS ORDERED: iohexol 350MG/ML 100ml bottle IV ONE (07:31)
[2020-02-28] MEDS ORDERED: iohexol 350 MG/ML 50ML vial IV ONE (07:31)
[2020-02-28] MEDS ORDERED: heparin 1,000unit/ml 10ml vial 10 ML ONE (07:31)
[2020-02-28] MEDS ORDERED: heparin 1,000 UNITS/NS 500ml 500 ML ONE (07:32)
[2020-02-28] MEDS ORDERED: LIDOcaine 1% (10mg/ml)w/preservative injection 20ml MDV ONE (07:43)
[2020-02-28] MEDS ORDERED: ondansetron/PF 4mg/2ml inj IV PRN (08:45)
[2020-02-28] MEDS ORDERED: OXAZEpam 15mg capsule PO PRN (08:45)
[2020-02-28] MEDS ORDERED: proCHLORperazine 10 MG/2 ml inj IV PRN (08:45)
== END 2020-02-28 11:15 | disposition home or self-care (01) ==
LOC: SSTAY O 06:23
PROVIDERS: ATTEND Internal Medicine Interventional Cardiology
DX: I70.248 Atherosclerosis of native arteries of left leg with ulceration of other part of lower leg (principal); G47.33 Obstructive sleep apnea (adult) (pediatric); I25.2 Old myocardial infarction; I10 Essential (primary) hypertension; Z79.899 Other long term (current) drug therapy
CPT/HCPCS: 36415; 37228; 75716; 80048; 85025; 85610; 85730; 93005; 99152; 99153; C1725; C1769; J1644; J2001; J2250; J3010; J7030; Q0163; Q9967; A4620; A6258; C1760; C1894

== ENCOUNTER 2020-03-21 14:40 | Inpatient (IN) | payer MEDICAID ==
[~2020-03-21] VITALS: Ht 185.4 cm; Wt 97.7 kg
[~2020-03-21 14:40] MED LIST changes: -ALLO100T PO; +CARV-50 PO; -CARV6.253 PO; -CEPH250T PO; +HCTZ25T PO; +POTA10TA19 PO; -TRIA1TAB5 PO
[2020-03-21] MEDS ORDERED: aspirin 81mg tab.chew PO ONE (15:35)
[2020-03-21 15:43] LABS: BASOPHILS # (AUTO) 0.1 X10'3 (0-0.2); BASOPHILS % (AUTO) 0.5 % (0-1); EOSINOPHILS # (AUTO) 0.1 X10'3 (0-0.9); EOSINOPHILS % (AUTO) 0.8 % (0-6); HEMATOCRIT 43.4 % (42.0-52.0); HEMOGLOBIN 15.1 g/dl (14.0-17.9); LYMPHOCYTES % (AUTO) 16.1 % (21-51); MEAN CORPUSCULAR HGB CONC 34.9 g/dL (33.0-36.5); MEAN CORPUSCULAR VOLUME 85.9 FL (78-98); MEAN PLATELET VOLUME 8.3 FL (7.4-10.4); MONOCYTES # (AUTO) 0.5 X10'3 (0-0.9); MONOCYTES % (AUTO) 3.9 % (2-12); NEUTROPHILS % (AUTO) 78.7 % (42-75); PLATELET COUNT 247 X10'3 (140-440); RED BLOOD COUNT 5.05 X10'6 (4.70-6.10); WHITE BLOOD COUNT 12.6 X10'3 (4.5-11.0)
[2020-03-21 16:02] LABS: ALANINE AMINOTRANSFERASE 28 U/L (12-78); ALBUMIN 4.3 G/DL (3.4-5.0); ALBUMIN/GLOBULIN RATIO 1.3 (1.1-1.5); ALKALINE PHOSPHATASE 123 IU/L (46-116); ANION GAP 7 (8-16); ASPARTATE AMINO TRANSFERASE 22 U/L (10-37); BILIRUBIN,TOTAL 0.8 MG/DL (0.1-1.0); BLOOD UREA NITROGEN 20 MG/DL (7-18); BUN/CREATININE RATIO 15.4 (5.4-32.0); CALCIUM 9.3 MG/DL (8.5-10.1); CHLORIDE 102 MMOL/L (99-107); GLUCOSE 144 MG/DL (70-104); MAGNESIUM 2.2 MG/DL (1.5-2.4); SODIUM 140 MMOL/L (135-145); TOTAL CARBON DIOXIDE 31.2 MMOL/L (24-32); TOTAL PROTEIN 7.6 G/DL (6.4-8.2); eGFR 57 ML/MIN
[2020-03-21 16:05] LABS: POTASSIUM 2.8 MMOL/L (3.5-5.1)
[2020-03-21] MEDS ORDERED: potassium 10mEq/100ml NS w/LIDOcaine (10mg/bag) IV ONE (16:35)
[2020-03-21] MEDS ORDERED: potassium Cl 20 mEq SR tablet PO ONE (16:35)
[2020-03-21] MEDS ORDERED: potassium Cl 10 mEq/100mL bag IV ONE (16:40)
[2020-03-21] MEDS ORDERED: POTA10TA36 PO (16:44)
[2020-03-21] MEDS ORDERED: CARV-50 PO (16:44)
[2020-03-21] MEDS: normal saline 1000ml 1,000 ML IV SCH (17:22)
[2020-03-21] MEDS ORDERED: magnesium 4gm in 100ml NS 100 ML IV PRN (17:25)
[2020-03-21] MEDS ORDERED: potassium Cl 20 mEq SR tablet PO PRN (17:25)
[2020-03-21] MEDS ORDERED: potassium CL 10mEq/100ml bag 100 ML IV PRN (17:25)
[2020-03-21] MEDS ORDERED: magnesium Cl slow-release 64mg tablet PO PRN (17:25)
[2020-03-21] MEDS ORDERED: aminophylline 250mg/10ml inj. IV PRN (17:25)
[2020-03-21] MEDS ORDERED: nitroGLYCERIN 0.4mg SUBLingual tab SL PRN (17:25)
[2020-03-21] MEDS ORDERED: regadenoson 0.4mg/5ml syringe IV ONE (17:25)
[2020-03-21] MEDS ORDERED: metoprolol tartrate 1mg/ml inj IV PRN (17:25)
[2020-03-21] MEDS ORDERED: magnesium 2GM in 50ml NS 50 ML IV PRN (17:25)
[2020-03-21] MEDS ORDERED: acetaminophen 325mg tablet PO PRN (17:25)
[2020-03-21] MEDS ORDERED: morphine 2 MG/ML inj. syringe IV PRN (17:25)
[2020-03-21] MEDS ORDERED: ondansetron/PF 4mg/2ml inj IV PRN (17:25)
[2020-03-21] MEDS ORDERED: HYDROcodone/acetaminophen 5mg/325mg tablet PO PRN (17:25)
[2020-03-21] MEDS ORDERED: regadenoson 0.4mg/5ml syringe IV PRN (18:25)
[2020-03-21 19:30] VITALS: BP 160/86
[2020-03-21] MEDS: docusate sod 100mg capsule PO SCH (20:52)
[2020-03-21] MEDS: heparin, porcine 5000 units/ml vial SQ SCH (20:52)
[2020-03-21] MEDS: potassium CL 10mEq/100ml bag 100 ML IV PRN ×3 (20:53→23:15)
[2020-03-21] MEDS: K and/or MAG REPLACEMENT MC SCH (20:56)
[2020-03-21] MEDS ORDERED: temazepam 15mg capsule PO PRN (21:00)
[2020-03-21] MEDS: acetaminophen 325mg tablet PO PRN (21:09)
[2020-03-21 22:00] VITALS: BP 143/81
[2020-03-22] VITALS (13 sets, daily range): BP systolic 133–171; BP diastolic 75–97
[2020-03-22] MEDS: potassium CL 10mEq/100ml bag 100 ML IV PRN ×2 (00:43→02:04)
[2020-03-22 03:37] LABS: BASOPHILS % (AUTO) 0.4 % (0-1); EOSINOPHILS # (AUTO) 0.1 X10'3 (0-0.9); EOSINOPHILS % (AUTO) 0.9 % (0-6); HEMATOCRIT 42.6 % (42.0-52.0); HEMOGLOBIN 14.7 g/dl (14.0-17.9); LYMPHOCYTES # (AUTO) 2.4 X10'3 (1.1-4.8); LYMPHOCYTES % (AUTO) 22.7 % (21-51); MEAN CORPUSCULAR HEMOGLOBIN 29.5 PG (27.0-31.0); MEAN CORPUSCULAR HGB CONC 34.4 g/dL (33.0-36.5); MEAN CORPUSCULAR VOLUME 85.6 FL (78-98); MONOCYTES # (AUTO) 0.6 X10'3 (0-0.9); MONOCYTES % (AUTO) 5.3 % (2-12); NEUTROPHILS # (AUTO) 7.5 X10'3 (1.8-7.7); NEUTROPHILS % (AUTO) 70.7 % (42-75); PLATELET COUNT 226 X10'3 (140-440); RED BLOOD COUNT 4.97 X10'6 (4.70-6.10); RED CELL DISTRIBUTION WIDTH 14.2 % (11.5-14.5); WHITE BLOOD COUNT 10.6 X10'3 (4.5-11.0)
[2020-03-22] MEDS: normal saline 1000ml 1,000 ML IV SCH ×3 (03:38→15:40)
[2020-03-22 03:49] LABS: ALBUMIN 3.8 G/DL (3.4-5.0); ANION GAP 7 (8-16); BLOOD UREA NITROGEN 16 MG/DL (7-18); BUN/CREATININE RATIO 13.3 (5.4-32.0); CALCIUM 8.8 MG/DL (8.5-10.1); CHLORIDE 105 MMOL/L (99-107); CHOL/HDL RATIO 3.4 (0.00-4.99); CHOLESTEROL 118 MG/DL (0-200); GLUCOSE 100 MG/DL (70-104); HDL CHOLESTEROL 35 MG/DL (35-60); LDL CHOLESTEROL 61 MG/DL (50-100); MAGNESIUM 1.6 MG/DL (1.5-2.4); POTASSIUM 3.1 MMOL/L (3.5-5.1); SODIUM 142 MMOL/L (135-145); TOTAL CARBON DIOXIDE 29.9 MMOL/L (24-32); TRIGLYCERIDES 130 MG/DL (20-135); eGFR 62 ML/MIN
[2020-03-22] MEDS: potassium Cl 20 mEq SR tablet PO PRN ×3 (03:57→13:07)
--- NOTE | 2020-03-22 06:30 | NUR ---
Patient in room PCU 3016. I have received report from tristan myers and had the opportunity to ask questions and assume patient care.
--- NOTE | 2020-03-22 06:39 | NUR ---
Problems reprioritized. Patient report given, questions answered & plan of care reviewed with TRIPP Diaz.
[2020-03-22] MEDS: docusate sod 100mg capsule PO SCH ×2 (07:27→20:00)
[2020-03-22] MEDS: heparin, porcine 5000 units/ml vial SQ SCH ×2 (07:29→20:43)
[2020-03-22] MEDS: K and/or MAG REPLACEMENT MC SCH ×2 (08:00→20:00)
--- NOTE | 2020-03-22 13:35 | NUR ---
PAGER ID: [phone] MESSAGE: DR. THORNTON, [id number]/NERISSA NORTH RESULTED, CAN HE EAT/DRINK? RADHA [id number]. TY
[2020-03-22] MEDS: HYDROchlorothiazide 12.5mg capsule PO SCH (13:41)
--- NOTE | 2020-03-22 18:27 | NUR ---
Problems reprioritized. Patient report given, questions answered & plan of care reviewed with TRIPP SWANSON.
--- NOTE | 2020-03-22 18:43 | NUR ---
Patient in room PCU 3016B. I have received report from TRIPP GARCIA and had the opportunity to ask questions and assume patient care. PATIENT AWAKE FOR BEDSIDE REPORT. ON ROOM AIR WITH NS INFUSING AT 100 ML/HR PER PROVIDER ORDER. WILL CONTINUE TO MONITOR CLOSELY.
[2020-03-22] MEDS ORDERED: acetaminophen 325mg tablet PO PRN ×2 (19:20→21:00)
[2020-03-22] MEDS ORDERED: diphenhydrAMINE 25mg capsule PO PRN ×2 (19:20→21:00)
[2020-03-22] MEDS: gabapentin 300mg capsule PO SCH (20:49)
[2020-03-22] MEDS: carvedilol 6.25mg tablet PO SCH (20:50)
[2020-03-23] MEDS: normal saline 1000ml 1,000 ML IV SCH (01:48)
--- NOTE | 2020-03-23 03:38 | NUR ---
Patient refused 0200 vital signs. Will continue to monitor closely.
[2020-03-23 06:00] VITALS: BP 162/84
--- NOTE | 2020-03-23 06:30 | NUR ---
Patient in room PCU 3016. I have received report from TRIPP SWANSON and had the opportunity to ask questions and assume patient care.
--- NOTE | 2020-03-23 06:41 | NUR ---
Problems reprioritized. Patient report given, questions answered & plan of care reviewed with TRIPP De León and TRIPP Cardenas. Addendum: 03/23/20 at 0642 by Shila Cota RN Problems reprioritized. Patient report given, questions answered & plan of care reviewed with TRIPP GARCIA.
[2020-03-23 07:06] LABS: BASOPHILS % (AUTO) 0.3 % (0-1); EOSINOPHILS # (AUTO) 0.1 X10'3 (0-0.9); EOSINOPHILS % (AUTO) 0.9 % (0-6); HEMOGLOBIN 14.8 g/dl (14.0-17.9); LYMPHOCYTES % (AUTO) 22.8 % (21-51); MEAN CORPUSCULAR HEMOGLOBIN 29.7 PG (27.0-31.0); MEAN CORPUSCULAR HGB CONC 34.5 g/dL (33.0-36.5); MEAN CORPUSCULAR VOLUME 86.2 FL (78-98); MONOCYTES # (AUTO) 0.5 X10'3 (0-0.9); MONOCYTES % (AUTO) 5.3 % (2-12); NEUTROPHILS # (AUTO) 6.2 X10'3 (1.8-7.7); NEUTROPHILS % (AUTO) 70.7 % (42-75); PLATELET COUNT 226 X10'3 (140-440); RED BLOOD COUNT 4.99 X10'6 (4.70-6.10); RED CELL DISTRIBUTION WIDTH 14.5 % (11.5-14.5); WHITE BLOOD COUNT 8.7 X10'3 (4.5-11.0)
[2020-03-23 07:20] LABS: ANION GAP 12 (8-16); BLOOD UREA NITROGEN 14 MG/DL (7-18); CHLORIDE 106 MMOL/L (99-107); CREATININE 1.17 MG/DL (0.60-1.10); GLUCOSE 95 MG/DL (70-104); MAGNESIUM 1.6 MG/DL (1.5-2.4); POTASSIUM 3.2 MMOL/L (3.5-5.1); SODIUM 145 MMOL/L (135-145); eGFR 64 ML/MIN
[2020-03-23] MEDS ORDERED: atorvastatin 20mg tablet PO SCH (08:00)
[2020-03-23] MEDS ORDERED: clopidogrel 75mg tablet PO SCH (08:00)
[2020-03-23] MEDS ORDERED: lisinopril 20mg tablet PO SCH (08:00)
[2020-03-23] MEDS: docusate sod 100mg capsule PO SCH (08:00)
[2020-03-23] MEDS: K and/or MAG REPLACEMENT MC SCH (08:00)
[2020-03-23] MEDS ORDERED: aspirin 81mg tablet.DR PO SCH (08:00)
[2020-03-23] MEDS: carvedilol 6.25mg tablet PO SCH (08:03)
[2020-03-23] MEDS: HYDROchlorothiazide 12.5mg capsule PO SCH (08:05)
[2020-03-23] MEDS: gabapentin 300mg capsule PO SCH (08:06)
[2020-03-23] MEDS: potassium Cl 20 mEq SR tablet PO PRN ×2 (08:10→12:41)
[2020-03-23] MEDS: heparin, porcine 5000 units/ml vial SQ SCH (08:10)
[2020-03-23] MEDS: acetaminophen 325mg tablet PO PRN (09:38)
[2020-03-23 11:00] VITALS: BP 147/82
== END 2020-03-23 15:01 | disposition home or self-care (01) | DRG 203 ==
LOC: ER 14:40 → ED HOLD 17:22 → EDBEDREQ 18:59 → PCU 3S 19:00
PROVIDERS: ADMIT Internal Medicine; ATTEND Family Medicine
PROC: 4A02XM4 Measurement of Cardiac Total Activity, External Approach (ICD-10-PCS; principal; 2020-03-21)
PROC: 3E073KZ Introduction of Other Diagnostic Substance into Coronary Artery, Percutaneous Approach (ICD-10-PCS; 2020-03-21)
DX: M94.0 Chondrocostal junction syndrome [Tietze] (principal); E78.00 Pure hypercholesterolemia, unspecified; E78.5 Hyperlipidemia, unspecified; E87.6 Hypokalemia; I10 Essential (primary) hypertension; I25.10 Atherosclerotic heart disease of native coronary artery without angina pectoris; I73.9 Peripheral vascular disease, unspecified; I25.2 Old myocardial infarction; Z95.5 Presence of coronary angioplasty implant and graft
CPT/HCPCS: 36415; 71045; 78452; 80048; 80053; 80061; 82948; 83735; 83880; 84484; 85025; 87081; 93005; 93017; 93306; 96374; 97116; 97161; 97530; 99285; A9500; G0378; J1644; J2785; J3480; J7030; Q0163

== ENCOUNTER 2020-12-06 09:58 | Emergency (ER) | payer MEDICAID ==
[~2020-12-06] VITALS: Ht 185.4 cm; Wt 102.3 kg
[~2020-12-06 09:58] MED LIST changes: +CLOP75TA34 PO; -CLOP75TA35 PO; -POTA10TA19 PO; +POTA10TA36 PO
[2020-12-06 10:28] LABS: BASOPHILS # (AUTO) 0.2 X10'3 (0-0.2); BASOPHILS % (AUTO) 1.6 % (0-1); EOSINOPHILS # (AUTO) 0.1 X10'3 (0-0.9); EOSINOPHILS % (AUTO) 0.7 % (0-6); HEMATOCRIT 45.5 % (42.0-52.0); HEMOGLOBIN 16.1 g/dl (14.0-17.9); LYMPHOCYTES # (AUTO) 1.6 X10'3 (1.1-4.8); MEAN CORPUSCULAR HEMOGLOBIN 29.4 PG (27.0-31.0); MEAN CORPUSCULAR HGB CONC 35.3 g/dL (33.0-36.5); MEAN CORPUSCULAR VOLUME 83.4 FL (78-98); MEAN PLATELET VOLUME 7.9 FL (7.4-10.4); MONOCYTES # (AUTO) 0.3 X10'3 (0-0.9); MONOCYTES % (AUTO) 3.3 % (2-12); NEUTROPHILS # (AUTO) 7.3 X10'3 (1.8-7.7); NEUTROPHILS % (AUTO) 77.4 % (42-75); PLATELET COUNT 256 X10'3 (140-440); RED BLOOD COUNT 5.46 X10'6 (4.70-6.10); RED CELL DISTRIBUTION WIDTH 13.2 % (11.5-14.5); WHITE BLOOD COUNT 9.5 X10'3 (4.5-11.0)
[2020-12-06 10:42] LABS: ALANINE AMINOTRANSFERASE 34 U/L (12-78); ALBUMIN 4.4 G/DL (3.4-5.0); ALBUMIN/GLOBULIN RATIO 1.2 (1.1-1.5); ALKALINE PHOSPHATASE 116 IU/L (46-116); ANION GAP 11 (8-16); ASPARTATE AMINO TRANSFERASE 22 U/L (10-37); BLOOD UREA NITROGEN 21 MG/DL (7-18); BUN/CREATININE RATIO 19.3 (5.4-32.0); CALCIUM 9.7 MG/DL (8.5-10.1); CHLORIDE 105 MMOL/L (99-107); CREATININE 1.09 MG/DL (0.60-1.10); GLUCOSE 123 MG/DL (70-104); POTASSIUM 3.4 MMOL/L (3.5-5.1); SODIUM 147 MMOL/L (135-145); TOTAL CARBON DIOXIDE 31.1 MMOL/L (24-32); TOTAL PROTEIN 8.1 G/DL (6.4-8.2); eGFR 70 ML/MIN
[2020-12-06 11:36] VITALS: BP 146/86
== END 2020-12-06 11:38 | disposition home or self-care (01) ==
LOC: ER 09:59
DX: R07.89 Other chest pain (principal); I25.2 Old myocardial infarction; I10 Essential (primary) hypertension; E78.5 Hyperlipidemia, unspecified; E78.00 Pure hypercholesterolemia, unspecified; Z79.82 Long term (current) use of aspirin; Z79.899 Other long term (current) drug therapy
CPT/HCPCS: 36415; 71045; 80053; 83880; 84484; 85025; 93005; 99285

== ENCOUNTER 2022-03-14 10:11 | Emergency (ER) | payer MEDICAID ==
[~2022-03-14] VITALS: Ht 185.4 cm; Wt 104.5 kg
[~2022-03-14 10:11] MED LIST changes: -BENA40TA8 PO; +BENA40TA90 PO; -HCTZ25T PO; +HYDR25TA5 PO; -POTA10TA36 PO; +POTA10TA37 PO
[2022-03-14] MEDS ORDERED: aspirin 81mg tab.chew PO ONE (10:35)
[2022-03-14] MEDS ORDERED: nitroGLYCERIN 0.4mg SUBLingual tab SL PRN (10:35)
[2022-03-14 10:53] LABS: BASOPHILS % (AUTO) 0.4 % (0-1); EOSINOPHILS % (AUTO) 0.5 % (0-6); HEMATOCRIT 47.5 % (42.0-52.0); HEMOGLOBIN 16.3 g/dl (14.0-17.9); LYMPHOCYTES # (AUTO) 1.6 X10'3 (1.1-4.8); LYMPHOCYTES % (AUTO) 19.5 % (21-51); MEAN CORPUSCULAR HEMOGLOBIN 29.3 PG (27.0-31.0); MEAN CORPUSCULAR HGB CONC 34.4 g/dL (33.0-36.5); MEAN CORPUSCULAR VOLUME 85.1 FL (78-98); MONOCYTES # (AUTO) 0.5 X10'3 (0-0.9); MONOCYTES % (AUTO) 5.4 % (2-12); NEUTROPHILS # (AUTO) 6.3 X10'3 (1.8-7.7); NEUTROPHILS % (AUTO) 74.2 % (42-75); PLATELET COUNT 261 X10'3 (140-440); RED BLOOD COUNT 5.57 X10'6 (4.70-6.10); RED CELL DISTRIBUTION WIDTH 13.9 % (11.5-14.5); WHITE BLOOD COUNT 8.4 X10'3 (4.5-11.0)
[2022-03-14] MEDS ORDERED: diltiazem 5mg/ml 5ml inj. IV ONE (11:00)
[2022-03-14 11:13] LABS: ALANINE AMINOTRANSFERASE 30 U/L (12-78); ALBUMIN 4.3 G/DL (3.4-5.0); ALBUMIN/GLOBULIN RATIO 1.2 (1.1-1.5); ALKALINE PHOSPHATASE 109 IU/L (46-116); ANION GAP 7 (8-16); ASPARTATE AMINO TRANSFERASE 25 U/L (10-37); BLOOD UREA NITROGEN 21 MG/DL (7-18); BUN/CREATININE RATIO 17.8 (5.4-32.0); CALCIUM 9.4 MG/DL (8.5-10.1); CHLORIDE 103 MMOL/L (99-107); CREATININE 1.18 MG/DL (0.60-1.10); GLUCOSE 160 MG/DL (70-104); POTASSIUM 3.3 MMOL/L (3.5-5.1); SODIUM 141 MMOL/L (135-145); TOTAL CARBON DIOXIDE 30.8 MMOL/L (24-32); TOTAL PROTEIN 7.9 G/DL (6.4-8.2); eGFR 63 ML/MIN
[2022-03-14] MEDS ORDERED: metoprolol tartrate 50mg tablet PO ONE (11:50)
[2022-03-14] MEDS ORDERED: APIX5TAB3 PO (13:13)
[2022-03-14 13:27] VITALS: BP 123/95
== END 2022-03-14 14:03 | disposition home or self-care (01) ==
LOC: ER 10:12
DX: I48.20 Chronic atrial fibrillation, unspecified (principal); I10 Essential (primary) hypertension; E78.00 Pure hypercholesterolemia, unspecified; I25.2 Old myocardial infarction; Z79.82 Long term (current) use of aspirin; Z79.899 Other long term (current) drug therapy
CPT/HCPCS: 36415; 71045; 80053; 83880; 84484; 85025; 93005; 96374; 99285; J3490

== ENCOUNTER 2022-05-31 11:32 | Day surgery (SDC) | payer MEDICAID ==
[2022-05-27 15:58] LABS: BASOPHILS # (AUTO) 0.1 X10'3 (0-0.2); BASOPHILS % (AUTO) 0.5 % (0-1); EOSINOPHILS # (AUTO) 0.1 X10'3 (0-0.9); EOSINOPHILS % (AUTO) 0.8 % (0-6); HEMOGLOBIN 15.3 g/dl (14.0-17.9); LYMPHOCYTES # (AUTO) 2.3 X10'3 (1.1-4.8); LYMPHOCYTES % (AUTO) 21.2 % (21-51); MEAN CORPUSCULAR HEMOGLOBIN 29.6 PG (27.0-31.0); MEAN CORPUSCULAR HGB CONC 34.7 g/dL (33.0-36.5); MEAN CORPUSCULAR VOLUME 85.1 FL (78-98); MEAN PLATELET VOLUME 8.1 FL (7.4-10.4); MONOCYTES # (AUTO) 0.7 X10'3 (0-0.9); MONOCYTES % (AUTO) 6.9 % (2-12); NEUTROPHILS # (AUTO) 7.6 X10'3 (1.8-7.7); NEUTROPHILS % (AUTO) 70.6 % (42-75); PLATELET COUNT 271 X10'3 (140-440); RED BLOOD COUNT 5.17 X10'6 (4.70-6.10); WHITE BLOOD COUNT 10.8 X10'3 (4.5-11.0)
[2022-05-27 16:01] LABS: ALBUMIN 4.1 G/DL (3.4-5.0); ANION GAP 10 (8-16); BLOOD UREA NITROGEN 22 MG/DL (7-18); BUN/CREATININE RATIO 19.8 (5.4-32.0); CALCIUM 9.3 MG/DL (8.5-10.1); CHLORIDE 105 MMOL/L (99-107); CREATININE 1.11 MG/DL (0.60-1.10); GLUCOSE 102 MG/DL (70-104); POTASSIUM 3.3 MMOL/L (3.5-5.1); SODIUM 143 MMOL/L (135-145); TOTAL CARBON DIOXIDE 28.4 MMOL/L (24-32); eGFR 68 ML/MIN
[2022-05-27 16:02] LABS: APTT 35 SECONDS (22-32)
[~2022-05-31] VITALS: Ht 185.4 cm; Wt 106.9 kg
[2022-05-31] VITALS (12 sets, daily range): BP systolic 114–153; BP diastolic 76–109
[~2022-05-31 11:32] MED LIST changes: +APIX5TAB3 PO; +POTA-206 PO; -POTA10TA37 PO
[2022-05-31] MEDS ORDERED: AMLO5TAB16 PO (11:57)
[2022-05-31] MEDS ORDERED: SOTA80TA73 PO (11:57)
[2022-05-31] MEDS ORDERED: APIX5TAB3 PO (11:59)
[2022-05-31] MEDS ORDERED: MIDAZolam 1mg/ml 10ml vial IV ONE (12:00)
[2022-05-31] MEDS ORDERED: normal saline 1000ml 1,000 ML IV SCH (12:00)
[2022-05-31] MEDS ORDERED: fentaNYL/PF 50MCG/1 ML 2ML syringe IV ONE (12:00)
== END 2022-05-31 15:05 | disposition home or self-care (01) ==
LOC: SSTAY O 11:32
PROVIDERS: ATTEND Student in an Organized Health Care Education/Training Program
DX: I48.91 Unspecified atrial fibrillation (principal); I25.2 Old myocardial infarction; G47.33 Obstructive sleep apnea (adult) (pediatric); I10 Essential (primary) hypertension; I25.10 Atherosclerotic heart disease of native coronary artery without angina pectoris; I27.20 Pulmonary hypertension, unspecified; Z79.899 Other long term (current) drug therapy; Z98.890 Other specified postprocedural states
CPT/HCPCS: 36415; 80048; 85025; 85610; 85730; 92960; 93005; 94799; J2250; J3010; J7030; A4620

== ENCOUNTER 2022-07-04 14:41 | Emergency (ER) | payer MEDICAID ==
[~2022-07-04] VITALS: Ht 185.4 cm; Wt 104.5 kg
[~2022-07-04 14:41] MED LIST changes: +AMLO5TAB16 PO; -ASPI81TA52 PO; -CARV-50 PO; -GABA-532 PO; +SOTA80TA73 PO
[2022-07-04 14:55] VITALS: BP 139/101
[2022-07-04] MEDS ORDERED: proparacaine 0.5% ophthalmic drops 15ml EACHEYE ONE (17:40)
[2022-07-04] MEDS ORDERED: polymyxin B sulf/tmp ophth drops 10ml LEFTEYE ONE (18:35)
[2022-07-05] MEDS ORDERED: polymyxin B sulf/tmp ophth drops 10ml LEFTEYE ONE (09:00)
== END 2022-07-04 18:59 | disposition home or self-care (01) ==
LOC: ER 14:42
DX: T15.92XA Foreign body on external eye, part unspecified, left eye, initial encounter (principal); H57.12 Ocular pain, left eye; H10.32 Unspecified acute conjunctivitis, left eye; I48.91 Unspecified atrial fibrillation; E78.00 Pure hypercholesterolemia, unspecified; I10 Essential (primary) hypertension; I25.2 Old myocardial infarction; Z79.899 Other long term (current) drug therapy; X58.XXXA Exposure to other specified factors, initial encounter; Y93.89 Activity, other specified; Y92.89 Other specified places as the place of occurrence of the external cause; Y99.8 Other external cause status
CPT/HCPCS: 65222; 99284

== ENCOUNTER 2022-09-06 10:27 | Emergency (ER) | payer MEDICAID ==
[~2022-09-06] VITALS: Ht 185.4 cm; Wt 104.5 kg
[2022-09-06 10:45] VITALS: BP 178/88
[2022-09-06] MEDS ORDERED: silver nitrate applicator stick TP ONE (13:00)
[2022-09-06] MEDS ORDERED: LIDOcaine 4% (40 mg/ml) topical solution 50ml TP ONE (13:00)
[2022-09-06] MEDS ORDERED: oxymetazoline 15 ML nasal spray NS ONE (13:00)
[2022-09-06] MEDS ORDERED: AMOX-117 PO (13:38)
== END 2022-09-06 15:17 | disposition home or self-care (01) ==
LOC: ER 10:28
DX: R04.0 Epistaxis (principal); I10 Essential (primary) hypertension; E78.00 Pure hypercholesterolemia, unspecified; I11.9 Hypertensive heart disease without heart failure; Z79.899 Other long term (current) drug therapy
CPT/HCPCS: 30901; 99284

== ENCOUNTER 2025-10-14 09:37 | Outpatient (CLI) | payer MEDICAID ==
[2025-10-14 10:17] LABS: MEAN PLATELET VOLUME 8.5 FL (7.4-10.4); RED CELL DISTRIBUTION WIDTH 14.1 % (11.5-14.5)
[2025-10-14 10:30] LABS: APTT 34 SECONDS (22-32); INR 1.2 INR
[2025-10-14 10:37] LABS: CHOL/HDL RATIO 3.2 (0.00-4.99); CREATININE 1.57 MG/DL (0.60-1.10); LDL CHOLESTEROL 71 MG/DL (50-100); TOTAL CARBON DIOXIDE 25.4 MMOL/L (24-32); eGFR 45 ML/MIN
== END 2025-10-14 23:59 | disposition home or self-care (01) ==
LOC: RAD 09:37
PROVIDERS: ATTEND Internal Medicine Interventional Cardiology
DX: I10 Essential (primary) hypertension (principal); I25.110 Atherosclerotic heart disease of native coronary artery with unstable angina pectoris; E78.5 Hyperlipidemia, unspecified
CPT/HCPCS: 36415; 80048; 80061; 85025; 85610; 85730

== ENCOUNTER 2025-10-21 08:49 | Day surgery (SDC) | payer MEDICAID ==
[~2025-10-21] VITALS: Ht 185.4 cm; Wt 103.3 kg
[~2025-10-21 08:49] MED LIST changes: -CLOP75TA34 PO; +EZET10TA80 PO; -HYDR25TA5 PO; -POTA-206 PO; +SOTA80TA PO; -SOTA80TA73 PO; +SPIR25TA5 PO
[2025-10-21] MEDS ORDERED: MIDAZolam 1mg/ml 10ml vial IV ONE (09:20)
[2025-10-21] MEDS ORDERED: fentaNYL/PF 50MCG/1 ML 2ML syringe IV ONE (09:20)
[2025-10-21] MEDS ORDERED: normal saline 1000ml 1,000 ML IV SCH (09:20)
[2025-10-21 09:45] VITALS: BP 114/82; PULSE 104; RESP 15; RESP 16; TEMP 97.3; O2SAT 98
[2025-10-21] MEDS ORDERED: amiodarone 50MG/ML inj IV ONE (12:35)
[2025-10-21] MEDS ORDERED: fentaNYL/PF 50MCG/1 ML 2ML syringe ONE (12:35)
[2025-10-21] MEDS ORDERED: midazolam 1 mg/ML 2ml injection ONE (12:35)
[2025-10-21] MEDS ORDERED: atropine 0.1mg/ml 10ml syringe ONE (12:35)
[2025-10-21 13:21] VITALS: BP 101/73; PULSE 64; RESP 11; O2SAT 97
--- NOTE | 2025-10-21 13:26 | PROCEDURE NOTE CC ---
Procedure Note Providers to CC CC: LOLIS MORENO MD ~ Description Planned Procedure Cardioversion Indications Symptomatic Atrial Fibrillation Post Operative Dx: Same Type of Anesthesia Moderate Sedation. Description It was confirmed that patient has been taking oral anticoagulation without interruption for at least 4 weeks. The appropriate time-out procedure was performed including proper identification of the patient, physician, procedure, documentation, and there were no safety issues identified. The patient participated actively in this. After sedation was achieved, the patient was placed in the supine position and hands free patches were placed on their chest in the AP-lateral position. 1 synchronized cardioversion was provided at 200 Joules with conversion to normal sinus rhythm. This was confirmed on EKG. Complication: None The patient tolerated the procedure well without complications. NICO MORENO MD Oct 21, 2025 13:26
[2025-10-21 13:30] VITALS: BP 95/68; PULSE 65; RESP 14; O2SAT 95
--- NOTE | 2025-10-21 13:37 | ELECTROCARDIOGRAPH REPORT ---
[facility] Test Date: 2025-10-21 Test Time: 13:34:02 Pat Name: ANY NORTH Department: [facility] Patient ID: [facility][id number] Room: Gender: M Probation Manager: : [id number] Requested By: NICO MORENO Order Number: [id number] Reading MD: Dr. HECTOR Espinosa Measurements Intervals [place] Rate: 62 P: 57 NM: 173 QRS: -29 QRSD: 112 T: -43 QT: 445 QTc: 452 Interpretive Statements Sinus rhythm Atrial premature complex Borderline intraventricular conduction delay Low voltage, precordial leads Electronically Signed On 10-22-2025 13:09:[address] HECTOR Espinosa Please click the below link to view image of tracing.
[2025-10-21 13:45] VITALS: BP 97/65; PULSE 62; RESP 16; O2SAT 98
[2025-10-21 13:51] VITALS: BP 100/68; PULSE 60; RESP 14; O2SAT 98
== END 2025-10-21 14:05 | disposition home or self-care (01) ==
LOC: SSTAY O 08:49
PROVIDERS: ATTEND Student in an Organized Health Care Education/Training Program
DX: I48.91 Unspecified atrial fibrillation (principal); G47.33 Obstructive sleep apnea (adult) (pediatric); I25.2 Old myocardial infarction; I10 Essential (primary) hypertension; I27.20 Pulmonary hypertension, unspecified; I25.10 Atherosclerotic heart disease of native coronary artery without angina pectoris; E78.00 Pure hypercholesterolemia, unspecified; Z79.01 Long term (current) use of anticoagulants; Z79.899 Other long term (current) drug therapy; Z98.890 Other specified postprocedural states; Z85.828 Personal history of other malignant neoplasm of skin
CPT/HCPCS: 92960; 93005; J2250; J3010; J7030; 99152; J0282; J0461